=== PATIENT | female | born 1970 | race Caucasian/White ===

== ENCOUNTER → 2023-04-29 11:02 | Outpatient (REF) | payer OTHER, SELFPAY | LOC: WDC 11:02 | PROVIDERS: ATTENDING PHYSICIAN Physician Assistant Medical | DX: Z12.31 Encounter for screening mammogram for malignant neoplasm of breast (principal) | CPT/HCPCS: 77063; 77067 ==

== ENCOUNTER → 2024-05-31 11:04 | Outpatient (REF) | payer OTHER, SELFPAY | LOC: WDC 11:04 | PROVIDERS: ATTENDING PHYSICIAN Obstetrics & Gynecology Gynecology; FAMILY PHYSICIAN Physician Assistant Medical | DX: Z12.31 Encounter for screening mammogram for malignant neoplasm of breast (principal) | CPT/HCPCS: 77063; 77067 ==

== ENCOUNTER → 2024-06-14 09:33 | Outpatient (REF) | payer OTHER, SELFPAY | LOC: WDC 09:33 | PROVIDERS: ATTENDING PHYSICIAN Obstetrics & Gynecology Gynecology; FAMILY PHYSICIAN Physician Assistant Medical | DX: R92.8 Other abnormal and inconclusive findings on diagnostic imaging of breast (principal) | CPT/HCPCS: 76642 ==

== ENCOUNTER → 2024-06-17 07:31 | Outpatient (REF) | payer OTHER, SELFPAY ==
--- NOTE | 2024-06-17 09:21 | OID.BR.INTR ---
[facility] Breast Navigator - Initial
- -
Date of Contact: 06/17/24
Met with patient. Patient given written information on navigator services at [facility]. Will follow up as needed per protocol.
== END ==
LOC: WDC 07:31
PROVIDERS: ATTENDING PHYSICIAN Obstetrics & Gynecology Gynecology; FAMILY PHYSICIAN Physician Assistant Medical
DX: N63.23 Unspecified lump in the left breast, lower outer quadrant (principal); N63.14 Unspecified lump in the right breast, lower inner quadrant
CPT/HCPCS: 88305; 19083; 88341; 88342; 88360; A4648

== ENCOUNTER → 2024-06-28 16:40 | Outpatient (REF) | payer OTHER, SELFPAY | LOC: MRI 3T 16:40 | PROVIDERS: ATTENDING PHYSICIAN Surgery; FAMILY PHYSICIAN Physician Assistant Medical | DX: C50.812 Malignant neoplasm of overlapping sites of left female breast (principal); Z17.0 Estrogen receptor positive status [ER+]; C50.811 Malignant neoplasm of overlapping sites of right female breast | CPT/HCPCS: 77049; A9585 ==

== ENCOUNTER → 2024-07-02 13:53 | Outpatient (REF) | payer OTHER, SELFPAY | LOC: WDC 13:53 | PROVIDERS: ATTENDING PHYSICIAN Surgery; FAMILY PHYSICIAN Physician Assistant Medical | DX: R92.8 Other abnormal and inconclusive findings on diagnostic imaging of breast (principal) | CPT/HCPCS: 76642 ==

== ENCOUNTER 2024-07-06 06:10 | Day surgery (SDC) | payer OTHER, SELFPAY ==
[2024-07-06 10:48] VITALS: BP 140/89; BMI 31.0
--- NOTE | 2024-07-06 10:54 | W.SUR.PREOP ---
Pre-Operative Surgical Note
-
I have examined this patient prior to the performance of the scheduled procedure.
The patient's condition is unchanged from the time of the current History and
Physical and the patient is able to undergo the scheduled procedure.
[2024-07-06] MEDS: NSS 1000 IV (11:03)
[2024-07-06] MEDS: TYLENOL 1000 MG PO (11:04)
[2024-07-06] MEDS: NORMOSOL-R/PLASMALYTE-A 1000 IV (11:36)
[2024-07-06] MEDS: VANCOCIN 200 IV (11:36)
[2024-07-06 13:28] VITALS: BP 114/77
[2024-07-06 13:30] VITALS: BP 121/75
--- NOTE | 2024-07-06 13:41 | W.IMMPOSTOP ---
Surgical Immed Post Op Note
-
Primary Surgeon: Kiesha
Assisting Surgeon: None
Pre-op Diagnosis: Bilateral breast ca
Post-op Diagnosis: Same
Procedure Performed: Right portacath insertion
Anesthesia Type: TIVA
Specimen / Cultures: None
Estimated Blood Loss: 4cc
Complications: None
Operative Findings: None
--- NOTE | 2024-07-06 13:42 | OR.RPT ---
Operative Report
Operative Report
Date of surgeru: 07/06/24
Pre-Op DX: Left breast ca
Post Op DX: Left breast ca
Procedure: Insertion right portacath
Surgeon: Kiesha
The patient is a 53-year-old female with left breast carcinoma requiring adjuvant neochemotherapy who presents now for right Port-A-Cath insertion.
The patient presented to same-day surgical services where she verified site and procedure. She was prepped and DVT and antibiotic prophylaxis were administered. She was taken to the operating room and in Trendelenburg position with shoulder roll
in place, the right chest and neck were prepped and draped in usual sterile fashion. The team performed an appropriate time out procedure. All tissues were anesthetized with 1% lidocaine plain.
Via Seldinger technique the right subclavian vein was entered on the first percutaneous stick. A guidewire was advanced into position in the superior vena cava and position was confirmed with the C arm. Inferior to the exit site of the guidewire,
a subcutaneous pocket was fashioned sharply with the cautery. A low-profile single-lumen port flushed with heparinized saline was passed into the pocket. It was securely attached to the catheter which was cut to appropriate length using
fluoroscopic guidance at the 21 cm paty. The tract was dilated under fluoroscopic guidance. Dilator and wire were removed and the catheter passed easily through the tear-away sheath which was removed. The port aspirated well and was flushed. The
patient was taken out of Trendelenburg position.
Hemostasis was verified. Marcaine 0.5% plain was instilled into all tissues and the wound was closed using simple interrupted 3-0 plain on subcutaneous tissue and skin was closed with a running subcuticular 4 Monocryl. Surgical glue and a sterile
compressive dressing were applied. The patient will be transferred to the recovery room where she will undergo postoperative chest x-ray.
([id number])
[2024-07-06 13:45] VITALS: BP 133/84
[2024-07-06 14:00] VITALS: BP 127/82
[2024-07-06 14:26] VITALS: BP 148/87
== END 2024-07-06 15:00 | disposition home or self-care (01) ==
LOC: SDS 06:10
PROVIDERS: ATTENDING PHYSICIAN Surgery
DX: C50.912 Malignant neoplasm of unspecified site of left female breast (principal)
CPT/HCPCS: 36561; 71045; 76000; C1788

== ENCOUNTER → 2024-07-06 08:51 | Outpatient (REF) | payer OTHER, SELFPAY | LOC: RCS 08:51 | PROVIDERS: ATTENDING PHYSICIAN Internal Medicine Hematology & Oncology; FAMILY PHYSICIAN Physician Assistant Medical | DX: C50.512 Malignant neoplasm of lower-outer quadrant of left female breast (principal) | CPT/HCPCS: 93306; 93356 ==

== ENCOUNTER → 2024-07-12 11:31 | Outpatient (REF) | payer OTHER, SELFPAY | LOC: RAD 11:31 | PROVIDERS: ATTENDING PHYSICIAN Surgery | DX: C50.812 Malignant neoplasm of overlapping sites of left female breast (principal) | CPT/HCPCS: 71046 ==

== ENCOUNTER → 2024-07-19 10:56 | Outpatient (REF) | payer OTHER, SELFPAY ==
[2024-07-19 11:38] LABS: % Basophils 0.6 % (0-2); % Eosinophils 5.1 % (0-6); % Immature Granulocytes 0.6 % (0-0.5); % Lymphocytes 20.5 % (20.5-51.1); % Monocytes 3.8 % (1.7-9.3); % Neutrophils 69.4 % (42.2-75.2); Absolute Basophils 0.1 10^3/uL (0-0.2); Absolute Eosinophils 0.5 10^3/uL (0-0.7); Absolute Immature Granulocytes 0.1 10^3/uL (0-0.05); Absolute Lymphocytes 2.1 10^3/uL (1.2-3.4); Absolute Monocytes 0.4 10^3/uL (0.1-0.6); Absolute Neutrophils 6.9 10^3/uL (1.4-6.5); Hematocrit 41.9 % (37.0-47.0); Hemoglobin 14.1 g/dL (12.0-16.0); Mean Corp Hgb Conc. 33.7 g/dL (33.0-37.0); Mean Corpuscular Hgb 30.1 pg (27.0-31.0); Mean Corpuscular Volume 89.5 fL (81.0-99.0); Mean Platelet Volume 9.6 fL (7.4-10.4); Nucleated Red Blood Cells % 0 %; Platelet Count 288 10^3/uL (130-400); Red Blood Cell Count 4.68 10^6/uL (4.20-5.40); Red Cell Dist. Width 13.2 % (11.5-14.5)
[2024-07-19 11:48] LABS: ALT (SGPT) 23 U/L (0-35); AST (SGOT) 21 U/L (14-36); Albumin 4.5 g/dl (3.5-5.0); Alkaline Phosphatase 77 U/L (38-126); Blood Urea Nitrogen 13 mg/dl (7-17); Calcium 10.2 mg/dl (8.4-10.2); Carbon Dioxide 27 mmol/L (22-30); Chloride 105 mmol/L (98-107); Glucose 115 mg/dl (70-99); Potassium 4.8 mmol/L (3.5-5.1); Sodium 142 mmol/L (135-145); Total Bilirubin 0.3 mg/dl (0.2-1.3); Total Protein 7.4 g/dl (6.3-8.2); eGFR > 60.00
== END ==
LOC: REG 10:56
PROVIDERS: ATTENDING PHYSICIAN Internal Medicine Hematology & Oncology; FAMILY PHYSICIAN Physician Assistant Medical
DX: C50.512 Malignant neoplasm of lower-outer quadrant of left female breast (principal); C50.511 Malignant neoplasm of lower-outer quadrant of right female breast
CPT/HCPCS: 36415; 80053; 85025

== ENCOUNTER → 2024-08-09 08:44 | Outpatient (REF) | payer OTHER, SELFPAY ==
[2024-08-09 09:34] LABS: % Basophils 0.7 % (0-2); % Eosinophils 1.7 % (0-6); % Immature Granulocytes 0.7 % (0-0.5); % Lymphocytes 17.3 % (20.5-51.1); % Monocytes 5.9 % (1.7-9.3); % Neutrophils 73.7 % (42.2-75.2); Absolute Basophils 0.1 10^3/uL (0-0.2); Absolute Eosinophils 0.2 10^3/uL (0-0.7); Absolute Immature Granulocytes 0.1 10^3/uL (0-0.05); Absolute Lymphocytes 1.7 10^3/uL (1.2-3.4); Absolute Monocytes 0.6 10^3/uL (0.1-0.6); Hemoglobin 12.5 g/dL (12.0-16.0); Mean Corp Hgb Conc. 33.8 g/dL (33.0-37.0); Mean Corpuscular Hgb 30.8 pg (27.0-31.0); Mean Corpuscular Volume 91.1 fL (81.0-99.0); Mean Platelet Volume 9.8 fL (7.4-10.4); Nucleated Red Blood Cells % 0 %; Platelet Count 298 10^3/uL (130-400); Red Blood Cell Count 4.06 10^6/uL (4.20-5.40); Red Cell Dist. Width 14.2 % (11.5-14.5); White Blood Cell Count 9.5 10^3/uL (4.8-10.8)
[2024-08-09 10:01] LABS: ALT (SGPT) 33 U/L (0-35); AST (SGOT) 25 U/L (14-36); Albumin 4.1 g/dl (3.5-5.0); Alkaline Phosphatase 84 U/L (38-126); Blood Urea Nitrogen 10 mg/dl (7-17); Calcium 9.5 mg/dl (8.4-10.2); Carbon Dioxide 26 mmol/L (22-30); Chloride 109 mmol/L (98-107); Glucose 67 mg/dl (70-99); Potassium 4.2 mmol/L (3.5-5.1); Sodium 141 mmol/L (135-145); Total Bilirubin 0.3 mg/dl (0.2-1.3); Total Protein 6.5 g/dl (6.3-8.2); eGFR > 60.00
== END ==
LOC: REG 08:44
PROVIDERS: ATTENDING PHYSICIAN Internal Medicine Hematology & Oncology; FAMILY PHYSICIAN Physician Assistant Medical
DX: C50.512 Malignant neoplasm of lower-outer quadrant of left female breast (principal); C50.511 Malignant neoplasm of lower-outer quadrant of right female breast
CPT/HCPCS: 36415; 80053; 85025

== ENCOUNTER → 2024-08-30 08:01 | Outpatient (REF) | payer OTHER, SELFPAY ==
[2024-08-30 08:25] LABS: % Basophils 0.7 % (0-2); % Eosinophils 0.4 % (0-6); % Immature Granulocytes 0.4 % (0-0.5); % Lymphocytes 22.1 % (20.5-51.1); % Monocytes 7.5 % (1.7-9.3); % Neutrophils 68.9 % (42.2-75.2); Absolute Basophils 0.1 10^3/uL (0-0.2); Absolute Lymphocytes 1.6 10^3/uL (1.2-3.4); Absolute Monocytes 0.5 10^3/uL (0.1-0.6); Absolute Neutrophils 4.8 10^3/uL (1.4-6.5); Hematocrit 35.2 % (37.0-47.0); Hemoglobin 11.7 g/dL (12.0-16.0); Mean Corp Hgb Conc. 33.2 g/dL (33.0-37.0); Mean Corpuscular Hgb 30.8 pg (27.0-31.0); Mean Corpuscular Volume 92.6 fL (81.0-99.0); Mean Platelet Volume 9.2 fL (7.4-10.4); Nucleated Red Blood Cells % 0 %; Platelet Count 200 10^3/uL (130-400); Red Cell Dist. Width 16.4 % (11.5-14.5)
[2024-08-30 09:57] LABS: ALT (SGPT) 53 U/L (0-35); AST (SGOT) 38 U/L (14-36); Albumin 4.2 g/dl (3.5-5.0); Alkaline Phosphatase 88 U/L (38-126); Blood Urea Nitrogen 12 mg/dl (7-17); Calcium 9.7 mg/dl (8.4-10.2); Carbon Dioxide 28 mmol/L (22-30); Chloride 109 mmol/L (98-107); Glucose 95 mg/dl (70-99); Sodium 145 mmol/L (135-145); Total Bilirubin 0.4 mg/dl (0.2-1.3); Total Protein 6.6 g/dl (6.3-8.2); eGFR > 60.00
== END ==
LOC: REG 08:01
PROVIDERS: ATTENDING PHYSICIAN Internal Medicine Hematology & Oncology
DX: C50.512 Malignant neoplasm of lower-outer quadrant of left female breast (principal); C50.511 Malignant neoplasm of lower-outer quadrant of right female breast
CPT/HCPCS: 36415; 80053; 85025

== ENCOUNTER → 2024-09-20 08:27 | Outpatient (REF) | payer OTHER, SELFPAY ==
[2024-09-20 09:28] LABS: Hematocrit 31.3 % (37.0-47.0); Hemoglobin 10.4 g/dL (12.0-16.0); Mean Corp Hgb Conc. 33.2 g/dL (33.0-37.0); Mean Corpuscular Volume 96.0 fL (81.0-99.0); Nucleated Red Blood Cells % 0 %; Platelet Count 195 10^3/uL (130-400); Red Cell Dist. Width 18.7 % (11.5-14.5)
[2024-09-20 09:55] LABS: ALT (SGPT) 31 U/L (0-35); AST (SGOT) 26 U/L (14-36); Albumin 3.8 g/dl (3.5-5.0); Alkaline Phosphatase 82 U/L (38-126); Blood Urea Nitrogen 9 mg/dl (7-17); Calcium 9.2 mg/dl (8.4-10.2); Carbon Dioxide 31 mmol/L (22-30); Chloride 107 mmol/L (98-107); Glucose 80 mg/dl (70-99); Potassium 3.9 mmol/L (3.5-5.1); Sodium 140 mmol/L (135-145); Total Protein 6.1 g/dl (6.3-8.2); eGFR > 60.00
== END ==
LOC: REG 08:27
PROVIDERS: ATTENDING PHYSICIAN Internal Medicine Hematology & Oncology; FAMILY PHYSICIAN Physician Assistant Medical
DX: C50.512 Malignant neoplasm of lower-outer quadrant of left female breast (principal); C50.511 Malignant neoplasm of lower-outer quadrant of right female breast
CPT/HCPCS: 36415; 80053; 85025

== ENCOUNTER → 2024-09-21 16:19 | Outpatient (REF) | payer OTHER, SELFPAY ==
[2024-09-21 09:56] LABS: Magnesium 1.7 mg/dl (1.6-2.3)
== END ==
LOC: OIDL 16:19
PROVIDERS: ATTENDING PHYSICIAN Internal Medicine Hematology & Oncology
DX: C50.511 Malignant neoplasm of lower-outer quadrant of right female breast (principal); C50.512 Malignant neoplasm of lower-outer quadrant of left female breast
CPT/HCPCS: 83735

== ENCOUNTER 2024-09-25 10:54 | Emergency (ER) | payer OTHER, SELFPAY ==
[2024-09-25 11:11] VITALS: BP 105/81
--- NOTE | 2024-09-25 11:12 | ED.GENMED ---
History of Present Illness
General
Chief Complaint: Dizziness
Source: patient
Exam Limitations: none
Time Seen by Provider: 09/25/24 11:05
History of Present Illness
History of Present Illness:
See MDM
Past History
Past History
ED Past Medical History: None and Cancer
ED Past Surgical History: Cholecystectomy and
Social History
Tobacco: Non-smoker
Alcohol: Occasional
Drug: None
Personal:
Living: with family
Phy Exam
Physical Exam
Physical Exam:
See MDM
Scores
[id number] Score for Afib Stroke Risk
Age in Years (65=0, 65-74=1, >/=75=2): <65
Sex (Female=+1): Female
Congestive Heart Failure History (Yes=+1): No
Hypertension History (Yes=+1): No
Stroke/TIA/Thromboembolism History (Yes=+2): No
Vascular Disease History (Yes=+1): No
Diabetes Mellitus (Yes=+1): No
Score: 1
Anticoagulation Recommendations: Consider anticoagulation (as validated in nonvalvular fib)
Course
Orders/Labs/Results
Orders:
Orders
09/25/24 11:00
Electrocardiogram (*1) Urgent
Reason for Study: Vertigo / Dizzy
EKG- Treatment ONCE
09/25/24 11:13
0.9% Sodium Chloride 1000 ml [Nss] 1,000 ml IV BOLUS
09/25/24 11:17
Diltiazem HCl [Cardizem] 20 mg IV NOW STA
09/25/24 11:24
Metoprolol Xl [Toprol Xl] 25 mg PO NOW STA
09/25/24 11:25
Electrocardiogram (*1) Urgent
Reason for Study: Palpitations
EKG- Treatment ONCE
09/25/24 11:45
Apixaban [Eliquis] 5 mg PO ONCE ONE
09/25/24 12:03
Complete Blood Count/With Diff Urgent
Comprehensive Metabolic Panel Urgent
Magnesium Urgent
Manual Differential Urgent
TSH Reflex To Free T4 Urgent
Abnormal Lab Results
09/25/24
12:03
WBC 14.9 H 10^3/uL
(4.8-10.8)
RBC 3.51 L 10^6/uL
(4.20-5.40)
Hgb 11.3 L g/dL
(12.0-16.0)
Hct 32.8 L %
(37.0-47.0)
MCH 32.2 H pg
(27.0-31.0)
RDW 18.4 H %
(11.5-14.5)
Abs Neuts (Manual) 13.2 H 10^3/uL
(1.4-6.5)
Segmented Neutrophils 86 H %
(42-75)
Lymphocytes (Manual) 7 L %
(20-51)
Monocytes (Manual) 1 L %
(2-9)
Glucose 129 H mg/dl
(70-99)
Total Protein 6.1 L g/dl
(6.3-8.2)
09/25/24 12:03
09/25/24 12:03
Vital Signs
Initial and Last Documented VS:
Initial Vital Signs
Temp Pulse Resp Pulse Ox
98.3 F 89 16 100
09/25/24 10:57 09/25/24 10:57 09/25/24 10:57 09/25/24 10:57
Last Documented Vital Signs
Temp Pulse Resp BP Pulse Ox
98.3 F 95 10 112/76 98
09/25/24 10:57 09/25/24 12:15 09/25/24 12:15 09/25/24 12:00 09/25/24 12:15
MDM/Problems Addressed
Differential Diagnosis Includes:
Note:
CHIEF COMPLAINT(S)
Dizziness and diarrhea.
HISTORY OF PRESENT ILLNESS
The patient is a 54-year-old female with a history of bilateral breast cancer currently undergoing chemotherapy, who presented with dizziness and diarrhea. The symptoms began last night with dizziness and lightheadedness continuing into this
morning. She described trying to consume fluids, carbohydrates, and protein for energy but experienced the onset of diarrhea today, reporting two episodes. She noted feeling 'fluttery' in her stomach and chest and described severe dizziness such
that she needs to hold onto nuñez for balance. She denies vomiting but reported that the dizziness is not associated with room spinning. No previous history of similar dizziness was noted.
ADDITIONAL HISTORY OBTAINED FROM SOURCES OTHER THAN THE PATIENT
Per attending, Dr. Hever Glass, the patients symptoms may be related to dehydration secondary to chemotherapy. He recommended IV fluids and an EKG.
CHRONIC MEDICAL CONDITIONS SIGNIFICANTLY AFFECTING CARE
The patient has a history of bilateral breast cancer, undergoing treatment for two types: HER2-positive and one HER2-negative.
REVIEW OF SYSTEMS
- Gastrointestinal: Two episodes of diarrhea today.
- Neurological: Severe dizziness requiring support to walk.
- Cardiac: Reports 'fluttery' feelings in chest.
PHYSICAL EXAM
General: Alert, no acute distress.
Skin: Warm, dry.
Head: Normocephalic, atraumatic
Neck: Appears supple, trachea midline.
Eyes, Ears, Nose, Mouth, and Throat: Dry mucosa moist.
Cardiovascular: No signs of cyanosis. Tachycardic and irregular
Respiratory: Respirations are non-labored.
Abdomen: Non-distended
Musculoskeletal: No deformities
Neurological: No focal neurological deficit observed.
Psychiatric: Cooperative, appropriate mood and affect.
PLAN
1. Administer IV fluids to address potential dehydration due to chemotherapy.
2. Order and perform an EKG to rule out irregular heart rhythms.
3. Conduct blood work to assess electrolyte levels and monitor for possible imbalances such as abnormal sodium or magnesium.
4. Consider testing for infections like Clostridium difficile if diarrhea persists.
DIFFERENTIAL DIAGNOSIS
The Differential Diagnosis includes, in no particular order and is not limited to:
1. Dehydration due to chemotherapy
2. Syncope
3. Anemia
4. Electrolyte imbalance
5. Arrhythmia
6. Vestibular dysfunction
7. Hypotension
8. Vertigo
9. Gastroenteritis
10. Central nervous system event (e.g., TIA)
EKG
My independent EKG interpretation is:
- Rhythm: Atrial fibrillation with rapid ventricular rate (RVR)
- Heart Rate: 123 beats per minute
- [place]: Normal
- No ST segment elevation myocardial infarction (STEMI) observed
CARE-UPDATE
09/25/24 - 11:24
Patient auto-converted to sinus rhythm; instead of IV Cardizem, will administer a dose of propranolol XL. Will discuss case with dairy feed sales consultant for further recommendations.
CARE-UPDATE
09/25/24 - 11:44
Discussed case with cardiology. Despite a low CHADS-VASc score, the patient is at high risk for clotting due to active cancer. Cardiology agrees with continuation of Toprol XL and initiating Eliquis for at least one month. Outpatient follow-up and
outpatient echocardiogram will be arranged.
Disposition:
SUMMARY OF ENCOUNTER
The patient, a 54-year-old female with a history of bilateral breast cancer undergoing chemotherapy, presented to the emergency department with dizziness and diarrhea. After administering IV fluids and observing the patient, her heart rhythm
stabilized to a normal sinus rhythm from atrial fibrillation. Blood work showed no significant abnormalities, and the thyroid function tests were within normal limits. The patients symptoms improved and she felt comfortable to be discharged.
DISPOSITION
Discharge.
MANAGEMENT OF THE PATIENTS CARE WAS DISCUSSED WITH
Discussed case with cardiology and relayed the course of events to the on-call oncologist.
PLAN
The patient will follow up with cardiology in an outpatient setting.
INDEPENDENT REVIEW OF LABS AND INTERPRETATION OF TESTS
My independent review of blood work indicates no significant abnormalities. Thyroid function tests are within normal limits.
MEDICATION RECONCILIATION
The patient was maintained on Toprol XL (metoprolol) and initiated on Eliquis (apixaban) for at least one month.
MEDICAL DECISION MAKING
-Complexity of Data Reviewed: Chronic conditions affecting care include breast cancer and atrial fibrillation. Differential Diagnosis includes:
1. Dehydration due to chemotherapy
2. Syncope
3. Anemia
4. Electrolyte imbalance
5. Arrhythmia
6. Vestibular dysfunction
7. Hypotension
8. Vertigo
9. Gastroenteritis
10. Central nervous system event (e.g., TIA)
-Data:
Category 1: Blood work was reviewed. My independent EKG interpretation showed atrial fibrillation with rapid ventricular rate initially, resolving to normal sinus rhythm.
Category 3: Discussion of management with dairy feed sales consultant and the on-call oncologist.
-Risk: Prescription medication was prescribed including Eliquis for anticoagulation and Toprol XL for heart rate control.
DIAGNOSIS
Atrial fibrillation (ICD-10: I48.91) and Dehydration (ICD-10: E86.0).
*Pulse Oximetry
SaO2: 100
Oxygen Mode of Delivery: Room air
Patient hypoxic: no
*Critical Care Note
Total Time (30-74mins, 75-104mins- exclusive of procedures): Not Applicable
ED Attending Note
-
Portions of this chart may have been created with voice recognition software.� Occasional wrong word or��sound alike� substitutions may have occurred due to the inherent limitations of voice recognition software.
Discharge Plan
Departure
Patient Disposition: Home (Routine Discharge)
Date of Disposition: 09/25/24
Time of Disposition: 13:21
Patient with high blood pressure during this ER visit?: No
Discharge Problem:
New onset a-fib
Instructions: Atrial fibrillation
Prescriptions:
New
Eliquis 5 mg tablet
5 mg PO BID 30 Days Qty: 60 0RF
metoprolol succinate [Toprol XL] 25 mg tablet extended release 24 hr
25 mg PO DAILY Qty: 30 0RF
No Action
ibuprofen [Advil] 200 MG tablet
200 mg PO ONCE
acetaminophen [Tylenol] 325 mg Tablet
650 mg PO Q4H PRN (Reason: pain)
cetirizine [Zyrtec] 10 mg Tablet
10 mg PO DAILY
albuterol sulfate 90 mcg/actuation Hfa Aerosol Inhaler
1 puff INHALATION PRN PRN (Reason: intermittent asthma)
fluticasone propionate [Flonase] 50 mcg/actuation [place],Suspension
1 spray INTRANASAL DAILY
One-A-Day Women's Complete 18 mg iron- 400 mcg Tablet
1 tab PO DAILY
Vitamin C
1 dose PO DAILY
Vitamin D3
1 dose PO DAILY
Referrals:
Ramirez Farah MD [Active, Cardiology]
Sanjuana Gonzalez PA-C [Family Provider, Family Practice]
Activity Restrictions/Additional Instructions:
As we discussed, you were found to be in new onset A-fib. This is an irregular heart rhythm. The dairy feed sales consultant is aware and they will expedite follow-up and repeat echocardiogram. You were placed on a new medication called metoprolol (Toprol-XL)
which will help avoid repeat A-fib episodes. Because of your clotting risk, the dairy feed sales consultant agrees with placing you on at least 1 month of a blood thinner called Eliquis.
Sometimes the metoprolol can make you feel dizzy. If this happens, the symptoms usually resolve with time but you can cut the pill in half and take half a pill twice a day if that helps with symptoms. If you develop recurrent episodes of A-fib,
you can take an extra dose of your metoprolol.
Please return for any worsening symptoms.
You may return at any time if you have further concerns.
Please follow up with your oncologist.
Thank you for choosing [facility].
Interventions
Interventions:
*Risk Screen - Suicide Last Done: 09/25/24 11:18
*General Assessment Last Done: 09/25/24 11:18
*Neglect/Abuse Screening Last Done: 09/25/24 11:18
*ED- Fall Risk Assessment Last Done: 09/25/24 11:18
*ED COVID-19 Vaccine History Last Done: 09/25/24 11:18
ED- Neurological Assessment Last Done: 09/25/24 11:18
Discharge Date and Time
Print Language: TURKISH
[2024-09-25 11:18] VITALS: BMI 29.1
[2024-09-25 11:30] VITALS: BP 108/76
[2024-09-25] MEDS: TOPROL XL 25 MG PO (11:30)
[2024-09-25 12:00] VITALS: BP 112/76
[2024-09-25] MEDS: ELIQUIS 5 MG PO (12:00)
[2024-09-25] MEDS: NSS 1000 IV (12:01)
[2024-09-25 12:39] LABS: ALT (SGPT) 27 U/L (0-35); AST (SGOT) 28 U/L (14-36); Albumin 4.2 g/dl (3.5-5.0); Alkaline Phosphatase 107 U/L (38-126); Blood Urea Nitrogen 16 mg/dl (7-17); Calcium 9.3 mg/dl (8.4-10.2); Carbon Dioxide 24 mmol/L (22-30); Chloride 106 mmol/L (98-107); Estimated Creatinine Clearance 109 ml/min; Glucose 129 mg/dl (70-99); Magnesium 1.8 mg/dl (1.6-2.3); Potassium 3.6 mmol/L (3.5-5.1); Sodium 139 mmol/L (135-145); Total Protein 6.1 g/dl (6.3-8.2); eGFR > 60.00
[2024-09-25 12:45] LABS: Hematocrit 32.8 % (37.0-47.0); Hemoglobin 11.3 g/dL (12.0-16.0); Mean Corp Hgb Conc. 34.5 g/dL (33.0-37.0); Mean Corpuscular Volume 93.4 fL (81.0-99.0); Platelet Count 270 10^3/uL (130-400); Red Cell Dist. Width 18.4 % (11.5-14.5)
[2024-09-25 13:00] VITALS: BP 121/78
[2024-09-25 13:19] LABS: Absolute Neutrophils -Man Diff 13.2 10^3/uL (1.4-6.5)
[2024-09-25 13:20] LABS: Normal RBC Morphology No; Platelets Checked Yes
[2024-09-25 13:21] LABS: Rouleaux 1+; Total Cells Counted 100
[2024-09-25 13:23] LABS: Anisocytosis 1+
== END 2024-09-25 14:09 | disposition home or self-care (01) ==
LOC: EMR 10:54
PROVIDERS: EMERGENCY PHYSICIAN Student in an Organized Health Care Education/Training Program; FAMILY PHYSICIAN Physician Assistant Medical
DX: I48.91 Unspecified atrial fibrillation (principal); Z17.32 Human epidermal growth factor receptor 2 negative status; Z79.01 Long term (current) use of anticoagulants; Z85.3 Personal history of malignant neoplasm of breast; Z90.49 Acquired absence of other specified parts of digestive tract
CPT/HCPCS: 99283; 96360; 80053; 83735; 84443; 85025; 93005

== ENCOUNTER → 2024-10-05 08:19 | Outpatient (REF) | payer OTHER, SELFPAY | LOC: HWRCS 08:19 | PROVIDERS: ATTENDING PHYSICIAN Internal Medicine Cardiovascular Disease; FAMILY PHYSICIAN Physician Assistant Medical | DX: C50.919 Malignant neoplasm of unspecified site of unspecified female breast (principal); I48.91 Unspecified atrial fibrillation | CPT/HCPCS: 93306 ==

== ENCOUNTER → 2024-10-11 08:28 | Outpatient (REF) | payer OTHER, SELFPAY ==
[2024-10-11 10:09] LABS: Hematocrit 31.7 % (37.0-47.0); Hemoglobin 10.5 g/dL (12.0-16.0); Mean Corp Hgb Conc. 33.1 g/dL (33.0-37.0); Mean Corpuscular Volume 101.0 fL (81.0-99.0); Nucleated Red Blood Cells % 0 %; Platelet Count 155 10^3/uL (130-400); Red Cell Dist. Width 20.2 % (11.5-14.5)
[2024-10-11 10:38] LABS: ALT (SGPT) 31 U/L (0-35); AST (SGOT) 25 U/L (14-36); Albumin 4.1 g/dl (3.5-5.0); Alkaline Phosphatase 79 U/L (38-126); Blood Urea Nitrogen 10 mg/dl (7-17); Calcium 9.4 mg/dl (8.4-10.2); Carbon Dioxide 26 mmol/L (22-30); Chloride 107 mmol/L (98-107); Glucose 100 mg/dl (70-99); Magnesium 1.7 mg/dl (1.6-2.3); Sodium 140 mmol/L (135-145); Total Protein 6.3 g/dl (6.3-8.2); eGFR > 60.00
[2024-10-11 10:49] LABS: Potassium 4.5 mmol/L (3.5-5.1)
== END ==
LOC: REG 08:28
PROVIDERS: ATTENDING PHYSICIAN Internal Medicine Hematology & Oncology; FAMILY PHYSICIAN Physician Assistant Medical
DX: C50.511 Malignant neoplasm of lower-outer quadrant of right female breast (principal); C50.512 Malignant neoplasm of lower-outer quadrant of left female breast
CPT/HCPCS: 36415; 80053; 83735; 85025

== ENCOUNTER → 2024-10-22 13:41 | Outpatient (REF) | payer OTHER, SELFPAY | LOC: WDC 13:41 | PROVIDERS: ATTENDING PHYSICIAN Surgery; FAMILY PHYSICIAN Physician Assistant Medical | DX: R92.8 Other abnormal and inconclusive findings on diagnostic imaging of breast (principal); C50.412 Malignant neoplasm of upper-outer quadrant of left female breast; C50.811 Malignant neoplasm of overlapping sites of right female breast | CPT/HCPCS: 76642 ==

== ENCOUNTER → 2024-11-02 11:26 | Outpatient (REF) | payer OTHER, SELFPAY ==
[2024-11-02 13:09] LABS: Hematocrit 29.3 % (37.0-47.0); Hemoglobin 9.6 g/dL (12.0-16.0); Mean Corp Hgb Conc. 32.8 g/dL (33.0-37.0); Mean Corpuscular Volume 104.6 fL (81.0-99.0); Nucleated Red Blood Cells % 0 %; Platelet Count 216 10^3/uL (130-400); Red Cell Dist. Width 19.0 % (11.5-14.5)
[2024-11-02 13:54] LABS: ALT (SGPT) 38 U/L (0-35); AST (SGOT) 31 U/L (14-36); Albumin 3.8 g/dl (3.5-5.0); Alkaline Phosphatase 67 U/L (38-126); Blood Urea Nitrogen 6 mg/dl (7-17); Calcium 9.5 mg/dl (8.4-10.2); Carbon Dioxide 28 mmol/L (22-30); Chloride 107 mmol/L (98-107); Glucose 89 mg/dl (70-99); Magnesium 1.7 mg/dl (1.6-2.3); Potassium 4.2 mmol/L (3.5-5.1); Sodium 140 mmol/L (135-145); Total Protein 5.8 g/dl (6.3-8.2); eGFR > 60.00
== END ==
LOC: REG 11:26
PROVIDERS: ATTENDING PHYSICIAN Internal Medicine Hematology & Oncology
DX: C50.511 Malignant neoplasm of lower-outer quadrant of right female breast (principal); C50.512 Malignant neoplasm of lower-outer quadrant of left female breast
CPT/HCPCS: 36415; 80053; 83735; 85025

== ENCOUNTER → 2024-11-27 09:53 | Outpatient (REF) | payer OTHER, SELFPAY ==
[2024-11-27 11:07] LABS: Hematocrit 27.9 % (37.0-47.0); Hemoglobin 9.2 g/dL (12.0-16.0); Mean Corp Hgb Conc. 33.0 g/dL (33.0-37.0); Mean Corpuscular Volume 104.1 fL (81.0-99.0); Nucleated Red Blood Cells % 0 %; Platelet Count 184 10^3/uL (130-400); Red Cell Dist. Width 15.9 % (11.5-14.5)
[2024-11-27 11:39] LABS: ALT (SGPT) 41 U/L (0-35); AST (SGOT) 31 U/L (14-36); Albumin 3.6 g/dl (3.5-5.0); Alkaline Phosphatase 68 U/L (38-126); Blood Urea Nitrogen 5 mg/dl (7-17); Calcium 9.0 mg/dl (8.4-10.2); Carbon Dioxide 27 mmol/L (22-30); Chloride 107 mmol/L (98-107); Glucose 88 mg/dl (70-99); Magnesium 1.3 mg/dl (1.6-2.3); Potassium 3.8 mmol/L (3.5-5.1); Sodium 140 mmol/L (135-145); Total Protein 5.8 g/dl (6.3-8.2); eGFR > 60.00
== END ==
LOC: REG 09:53
PROVIDERS: ATTENDING PHYSICIAN Internal Medicine Hematology & Oncology; FAMILY PHYSICIAN Physician Assistant Medical
DX: C50.511 Malignant neoplasm of lower-outer quadrant of right female breast (principal); C50.512 Malignant neoplasm of lower-outer quadrant of left female breast
CPT/HCPCS: 36415; 80053; 83735; 85025

== ENCOUNTER → 2024-12-13 11:38 | Outpatient (REF) | payer OTHER, SELFPAY | LOC: WDC 11:38 | PROVIDERS: ATTENDING PHYSICIAN Surgery | DX: C50.811 Malignant neoplasm of overlapping sites of right female breast (principal); C50.412 Malignant neoplasm of upper-outer quadrant of left female breast | CPT/HCPCS: 38792; 76942; A9541 ==

== ENCOUNTER 2024-12-14 06:28 | Day surgery (SDC) | payer OTHER, SELFPAY ==
[2024-11-29 11:21] LABS: Hematocrit 31.1 % (37.0-47.0); Hemoglobin 10.1 g/dL (12.0-16.0); Mean Corp Hgb Conc. 32.5 g/dL (33.0-37.0); Mean Corpuscular Volume 104.0 fL (81.0-99.0); Nucleated Red Blood Cells % 0 %; Platelet Count 273 10^3/uL (130-400); Red Cell Dist. Width 16.1 % (11.5-14.5)
[2024-11-29 11:57] LABS: ALT (SGPT) 35 U/L (0-35); AST (SGOT) 29 U/L (14-36); Albumin 4.0 g/dl (3.5-5.0); Alkaline Phosphatase 76 U/L (38-126); Blood Urea Nitrogen 8 mg/dl (7-17); Calcium 9.0 mg/dl (8.4-10.2); Carbon Dioxide 27 mmol/L (22-30); Chloride 106 mmol/L (98-107); Glucose 80 mg/dl (70-99); Potassium 3.9 mmol/L (3.5-5.1); Sodium 141 mmol/L (135-145); Total Protein 6.1 g/dl (6.3-8.2); eGFR > 60.00
[2024-11-29 12:04] LABS: Prealbumin (Transthyretin) 22.4 mg/dl (17.6-36.0)
[2024-11-29 12:16] LABS: Vitamin D, 25-OH*** 29.3 ng/mL (30-80)
[2024-11-29 14:15] VITALS: BMI 27.7
--- NOTE | 2024-12-07 14:28 | VNURNOTE ---
Chart reviewed. Rec'ed update from PAT -Anticipate HH needs post-op. [facility] referral placed in [facility].
[2024-12-14] VITALS (16 sets, daily range): BP systolic 0–146; BP diastolic 61–89; BMI 27.7
[2024-12-14] MEDS: NORMOSOL-R/PLASMALYTE-A 1000 IV (07:06)
[2024-12-14] MEDS: LOVENOX 40 MG SC (07:06)
[2024-12-14] MEDS: TYLENOL 1000 MG PO ×3 (07:07→23:34)
[2024-12-14] MEDS: VANCOCIN 200 IV (07:25)
[2024-12-14] MEDS: EMEND 40 MG PO (07:54)
--- NOTE | 2024-12-14 11:41 | OR.RPT ---
Operative Report
Operative Report
Procedure: 12/14/2024
Surgeon: Kiesha
Preoperative diagnosis: Bilateral breast carcinoma
Postoperative diagnosis: Bilateral breast carcinoma
Procedure: Bilateral mastectomies, bilateral sentinel lymph node mapping and biopsy
The patient is a 54-year-old female who presented with bilateral breast carcinomas the right side being HER2 positive. She underwent neoadjuvant chemotherapy and presents now for bilateral mastectomies and sentinel lymph node mapping and biopsy.
On the day prior to the procedure she presented to the [place] [facility] imaging center where technetium radiotracer was injected into the parenchyma of both breasts. On the day of the procedure she presented to the same-day surgical services where she
was prepped. She verified site and procedure and DVT and antibiotic prophylaxis were provided.
She was taken to the operating room and in the supine position general anesthesia was induced. A Teresa catheter was inserted using aseptic technique. Both breasts chest and upper abdomen were prepped and draped in usual sterile fashion. Her
Port-A-Cath had been accessed and was sterilely excluded with a Tegaderm. Plastic surgery marked the incisions. An appropriate timeout procedure was performed by all staff members.
Attention was first turned to the left breast. Methylene blue dye was injected into the breast parenchyma and external massage was applied. A vertical teardrop incision was then made with the blade, incorporating resection of the nipple areolar
complex. Skin flaps were elevated using the PlasmaBlade and a lighted retractor. Flaps were elevated and dissection was carried down to the chest wall. Larger vessels were controlled with 3-0 silk tie. The breast was taken off the chest in a
superior to inferior dimension and removed laterally. Time out of body was noted and the specimen was oriented for the pathologist and sent for permanent analysis. This allowed entry into the axilla. Clavipectoral fascia was incised and using the
neoprobe and visualization of blue dye 3 sentinel node packets were encountered and excised. Feeding vessels were controlled with 3-0 silk ties. After the removal there was a greater than fourfold reduction of background count. Hemostasis was
verified and the wound was irrigated and suctioned. A moist pack was placed. In the same fashion the right side was approached and removed. On this side there were 3 sentinel nodes sent as well. Plastic surgery then entered the procedure to
begin the reconstructive portion. All sponge needle and instrument counts were correct at this juncture.
([id number], [id number], [id number])
Wiley Node Bx Breast Cancer
Wiley Node Bx Breast Cancer
Operation performed with curative intent: Yes
Tracer(s) to ID Wiley Nodes in Non-Neoadjuvant setting: N/A
Tracer(s) to ID Sentinal Nodes in the Neoadjuvant Setting: Dye and Radioactive Tracer
All nodes at end of dye-filled Lymphatic Channel removed: Yes
All Significantly Radioactive Nodes were removed: Yes
All Palpably Suspicious Nodes were Removed: Yes
Bx Proven Pos Nodes Marked Prior to Chemo ID'd & Removed: N/A
[2024-12-14] MEDS: DILAUDID 0.25 MG IV (12:49)
[2024-12-14] MEDS: DILAUDID 0.5 MG IV ×2 (13:14→13:46)
--- NOTE | 2024-12-14 13:18 | OR.RPT ---
Operative Report
Operative Report
Date of surgery: 12/14/2024
Surgeon: AMANDA Conley MD
Preoperative diagnosis: Breast cancer
Postoperative diagnosis: Same
Procedure:
1. Bilateral immediate breast reconstruction with prepectoral tissue expanders
2. Total anterior coverage technique for ADM wrap
Complications: None
Anesthesia: General
EBL: 30
Needle Valve Operator size: 13 cm
Indications for procedure: Patient was referred to me by Dr. Pop with a recent diagnosis of breast cancer. She was planned to undergo bilateral mastectomy. We discussed her options for breast reconstruction at length including implant based
and autologous options. The patient opted for immediate reconstruction with tissue expanders. She understands that the final reconstruction will be staged. We also discussed the use of ADM and spy angiography. Risks include reconstructive
failure, capsular contracture, infection, delayed wound healing, mastectomy skin flap necrosis, hematoma, seroma and need for repeat procedure. Patient understood these risks and desired to proceed. Consents were signed accordingly.
Procedure in detail: Patient was identified the preoperative area and the surgical site was confirmed to be the bilateral breast. All questions were answered and consents were confirmed. Patient was then sat upright and normal anatomical landmarks
were marked including midline and inframammary fold. Patient was then taken back to the operating room placed supine on the table. She was prepped and draped in the usual sterile fashion using ChloraPrep solution. A Teresa catheter was placed. A
timeout for patient safety was performed was confirmed that bilateral SCDs were in place and preoperative antibiotics administered. The procedure began with Dr. Pop first performing the mastectomy. Her op report will be dictated separately.
When I entered the procedure, the first sided mastectomy had been completed. As such I inspected the wound bed of the chest wall and ensured meticulous hemostasis. The base width was measured and appropriate tissue black belt was selected. Two 6 x
16 sheets of Cortiva ADM were soaked in dilute Betadine solution and passed through the skin graft mesher on carrier of 1-1.5. This construct was then draped around the tissue black belt in a total anterior coverage technique. The black belt ADM
construct was then sutured to the chest wall with a series of 2-0 silk sutures. Pectoralis and intercostal blocks were performed with Marcaine. 2 drains were then placed in the preaxial area line with a long subcutaneous tunnel and sutured in
place with 2-0 Prolene sutures. The wound was irrigated with double antibiotic solution and dilute Betadine. The mastectomy incisions were then closed with a series of 3-0 Vicryl's in the deep subcutaneous tissues followed by 3-0 and 4-0
Monocryl's in the deep dermis and superficial skin.
Attention was then placed on the contralateral side after completion of the mastectomy. The exact same procedure was performed. An black belt of the same size was opened and 2 sheets of ADM were soaked in Betadine, meshed, and draped around the
anterior surface of the black belt in a total anterior coverage technique. The construct was then sutured to the chest wall using 2-0 silks. Pectoralis and intercostal blocks were performed. Meticulous hemostasis was ensured and the wound was
irrigated with combination of double antibiotic solution consisting of Ancef and gentamicin as well as dilute Betadine. The wound was closed in layers with 3-0 Vicryl followed by 3-0 Monocryl and 4-0 Monocryl superficial skin.
The wounds were dressed accordingly and a supportive bra was placed. The patient was extubated taken to the PACU for further care. All counts were correct at the end the case was performed out complication.
--- NOTE | 2024-12-14 15:20 | PTCARENOTE ---
Pt received from the PACU via bed. Transport was w/o incident. Pt is AAOX3, HRR, lungs are clear, resp. easy. Pt with dressings to right and left breast area intact, no drainage noted at this time. Pt's support bra maintained. 2 Bird sites below left
breast and 2 bird drains below right breast areas all intact, draining dark [place] drainage. Pt with a le cath draining clear yellow urine. VSS, Pt is afebrile. Pt reports pain as mild at this time. Pt instructed on plan of care. Pt verbalized
understanding of instructions. Call cerrato is within reach.
[2024-12-14] MEDS: NEURONTIN 300 MG PO ×2 (17:20→21:04)
[2024-12-14] MEDS: VALIUM 5 MG PO ×2 (17:21→23:50)
--- NOTE | 2024-12-14 18:25 | W.IMMPOSTOP ---
Surgical Immed Post Op Note
-
Primary Surgeon: AMANDA Conley MD
Assisting Surgeon:
Pre-op Diagnosis: Breast cancer
Post-op Diagnosis: Same
Procedure Performed: Bilateral immediate breast reconstruction with tissue expanders, ADM insertion
Anesthesia Type: General
Specimen / Cultures: Per Dr. Pop
Estimated Blood Loss: 30 cc
Complications: None
Operative Findings: As expected
[2024-12-14] MEDS: ULTRAM 100 MG PO (21:05)
[2024-12-15 03:19] VITALS: BP 131/75
[2024-12-15] MEDS: TYLENOL 1000 MG PO ×2 (06:10→12:52)
[2024-12-15] MEDS: ULTRAM 100 MG PO (06:29)
[2024-12-15 07:35] VITALS: BP 146/80
[2024-12-15 08:29] LABS: Hematocrit 31.6 % (37.0-47.0); Hemoglobin 10.5 g/dL (12.0-16.0)
[2024-12-15] MEDS: PROTONIX 40 MG PO (08:33)
[2024-12-15] MEDS: TOPROL XL 25 MG PO (08:33)
[2024-12-15] MEDS: NEURONTIN 300 MG PO (08:33)
[2024-12-15] MEDS: VALIUM 5 MG PO (08:34)
[2024-12-15 08:45] LABS: Blood Urea Nitrogen 9 mg/dl (7-17); Calcium 9.3 mg/dl (8.4-10.2); Carbon Dioxide 27 mmol/L (22-30); Chloride 106 mmol/L (98-107); Estimated Creatinine Clearance 106 ml/min; Glucose 103 mg/dl (70-99); Potassium 3.8 mmol/L (3.5-5.1); Sodium 139 mmol/L (135-145); eGFR > 60.00
--- NOTE | 2024-12-15 10:55 | VNURNOTE ---
Home Health Liaison met with patient at bedside to discuss [facility] nurse/therapy, visits, schedule and homebound status. Patient is agreeable and understands that visits at home will be 2-3 x per week to assess and teach medical management. Patient
is aware that [facility] will contact them for start of care in 1-2 days after discharge from . Provided contact number for [facility].
[facility] referral accepted in [facility].
--- NOTE | 2024-12-15 11:14 | W.DCSUMMARY ---
Discharge Summary
Discharge Data
Date of Admission: 12/14/24
Date of Discharge: 12/15/24
-
Pending Results: No
Hospital Course
Patient admitted following bilateral mastectomy. Follow routine postoperative course. She progressively was able to ambulate tolerate a regular diet and pain was well-controlled on oral medications. She was discharged postop day 1 with close
surgical follow-up
Discharge Plan
-
Patient Disposition: Home (Routine Discharge)
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
Condition: Good
Diet: Regular
Activity: No strenuous activity
Additional Activity: No heavy lifting >10lbs, T adelfo arms for ROM
Driving Restrictions: Not until seen by your Dr
Bathing Restrictions: OK to Shower
Other Services: VN
Wound Care: Strip and record drain output twice daily, light compression bra
Instructions: How to care for a closed suction drain
Referrals:
Sanjuana Gonzalez PA-C [Family Provider, Family Practice]
Prescriptions:
New
tramadol 50 mg Tablet
50 - 100 mg PO Q6HPRN PRN (Reason: pain) 7 Days Qty: 20 0RF
acetaminophen [Tylenol Extra Strength] 500 mg Tablet
1,000 mg PO Q6 30 Days Qty: 240 0RF
gabapentin 100 mg Capsule
300 mg PO TID 30 Days Qty: 270 3RF
diazepam 5 mg Tablet
5 mg PO TID 14 Days Qty: 42 0RF
sulfamethoxazole-trimethoprim [Bactrim] 400-80 mg tablet
1 tab PO BID Qty: 42 0RF
Continued
acetaminophen [Tylenol] 325 mg Tablet
650 mg PO Q4H PRN (Reason: pain)
cetirizine [Zyrtec] 10 mg Tablet
10 mg PO DAILY
albuterol sulfate 90 mcg/actuation Hfa Aerosol Inhaler
1 puff INHALATION PRN PRN (Reason: intermittent asthma)
fluticasone propionate 50 mcg/actuation [place],Suspension
1 spray INTRANASAL DAILY PRN (Reason: allergies)
metoprolol succinate [Toprol XL] 25 mg tablet extended release 24 hr
25 mg PO DAILY Qty: 30 0RF
famotidine [Pepcid] 20 mg Tablet
20 mg PO DAILY PRN (Reason: reflux)
esomeprazole magnesium [Nexium] 20 mg Capsule,Delayed Release(Dr/Ec)
20 mg PO DAILY
magnesium 200 mg Tablet
400 mg PO DAILY
Phesgo
1 dose SC Q3W
Patient Comments:
every 3 weeks
Discharge Orders:
Discharge Patient (As Directed); Ordered 12/15/24
Ordered By: Jose Daniel Conley
Discharge Date and Time
Print Language: GREENLANDIC
[2024-12-15 11:50] VITALS: BP 129/71
--- NOTE | 2024-12-15 14:52 | CM ---
Alert awake oriented patient who lives with her Aldo and 3 kids in a 2 story home with 2 steps to enter and 12 steps to bed/bathroom. She is independent in activates of daily living.She does drive .Offered VN she requested [facility] .
[facility] aware of referral . Pt has a Drain .
NO VN in past . No SNF hx
Pharmacy [facility]
PCP Dr Bridges
PLAN Home with [facility]
== END 2024-12-15 14:21 | disposition home health service (06) ==
LOC: SDS 06:28
PROVIDERS: Surgery Plastic and Reconstructive Surgery; ATTENDING PHYSICIAN Surgery; FAMILY PHYSICIAN Physician Assistant Medical
PROC: 07B60ZX Excision of Left Axillary Lymphatic, Open Approach, Diagnostic (ICD-10-PCS; 2024-12-14)
PROC: 0HTV0ZZ Resection of Bilateral Breast, Open Approach (ICD-10-PCS; 2024-12-14)
PROC: 0HHV0NZ Insertion of Tissue Expander into Bilateral Breast, Open Approach (ICD-10-PCS; 2024-12-14)
PROC: 07B50ZX Excision of Right Axillary Lymphatic, Open Approach, Diagnostic (ICD-10-PCS; 2024-12-14)
DX: C50.911 Malignant neoplasm of unspecified site of right female breast (principal); C50.912 Malignant neoplasm of unspecified site of left female breast; I48.91 Unspecified atrial fibrillation; K21.9 Gastro-esophageal reflux disease without esophagitis; J45.20 Mild intermittent asthma, uncomplicated; G43.909 Migraine, unspecified, not intractable, without status migrainosus; Z17.31 Human epidermal growth factor receptor 2 positive status; Z92.21 Personal history of antineoplastic chemotherapy; Z88.0 Allergy status to penicillin; Z79.899 Other long term (current) drug therapy; Z82.49 Family history of ischemic heart disease and other diseases of the circulatory system; Z80.3 Family history of malignant neoplasm of breast; Z80.0 Family history of malignant neoplasm of digestive organs; Z92.3 Personal history of irradiation; Z79.01 Long term (current) use of anticoagulants; Z91.048 Other nonmedicinal substance allergy status
CPT/HCPCS: 19357; 19307; 38900; 36415; 80048; 80053; 82306; 84134; 85014; 85018; 85025; 88307; 88342; 93005; C1789; L8000; Q4100

== ENCOUNTER → 2024-12-25 10:47 | Outpatient (REF) | payer OTHER, SELFPAY ==
[2024-12-25 13:01] LABS: ALT (SGPT) 59 U/L (0-35); AST (SGOT) 46 U/L (14-36); Albumin 3.5 g/dl (3.5-5.0); Alkaline Phosphatase 89 U/L (38-126); Blood Urea Nitrogen 15 mg/dl (7-17); Calcium 9.1 mg/dl (8.4-10.2); Carbon Dioxide 25 mmol/L (22-30); Chloride 108 mmol/L (98-107); Glucose 87 mg/dl (70-99); Magnesium 1.8 mg/dl (1.6-2.3); Potassium 3.9 mmol/L (3.5-5.1); Sodium 136 mmol/L (135-145); Total Protein 5.8 g/dl (6.3-8.2); eGFR > 60.00
[2024-12-25 13:28] LABS: Hematocrit 32.0 % (37.0-47.0); Hemoglobin 10.4 g/dL (12.0-16.0); Mean Corp Hgb Conc. 32.5 g/dL (33.0-37.0); Mean Corpuscular Volume 106.0 fL (81.0-99.0); Nucleated Red Blood Cells % 0 %; Platelet Count 232 10^3/uL (130-400); Red Cell Dist. Width 13.6 % (11.5-14.5)
== END ==
LOC: REG 10:47
PROVIDERS: ATTENDING PHYSICIAN Internal Medicine Hematology & Oncology; FAMILY PHYSICIAN Physician Assistant Medical
DX: C50.511 Malignant neoplasm of lower-outer quadrant of right female breast (principal); C50.512 Malignant neoplasm of lower-outer quadrant of left female breast
CPT/HCPCS: 36415; 80053; 83735; 85025

== ENCOUNTER → 2025-01-07 14:28 | Outpatient (REF) | payer OTHER, SELFPAY | LOC: HWRCS 14:28 | PROVIDERS: ATTENDING PHYSICIAN Internal Medicine Hematology & Oncology; FAMILY PHYSICIAN Physician Assistant Medical | DX: C50.512 Malignant neoplasm of lower-outer quadrant of left female breast (principal); C51.1 Malignant neoplasm of labium minus; Z78.0 Asymptomatic menopausal state | CPT/HCPCS: 93306 ==

== ENCOUNTER → 2025-01-14 06:48 | Outpatient (REF) | payer OTHER, SELFPAY | LOC: HWRAD 06:48 | PROVIDERS: ATTENDING PHYSICIAN Internal Medicine Hematology & Oncology; FAMILY PHYSICIAN Physician Assistant Medical | DX: C50.512 Malignant neoplasm of lower-outer quadrant of left female breast (principal); C50.511 Malignant neoplasm of lower-outer quadrant of right female breast; Z78.0 Asymptomatic menopausal state | CPT/HCPCS: 77080 ==

== ENCOUNTER → 2025-01-15 09:31 | Outpatient (REF) | payer OTHER, SELFPAY ==
[2025-01-15 10:23] LABS: Hematocrit 35.8 % (37.0-47.0); Hemoglobin 11.7 g/dL (12.0-16.0); Mean Corp Hgb Conc. 32.7 g/dL (33.0-37.0); Mean Corpuscular Volume 98.9 fL (81.0-99.0); Nucleated Red Blood Cells % 0 %; Platelet Count 180 10^3/uL (130-400); Red Cell Dist. Width 12.9 % (11.5-14.5)
[2025-01-15 10:44] LABS: ALT (SGPT) 44 U/L (0-35); AST (SGOT) 36 U/L (14-36); Albumin 3.9 g/dl (3.5-5.0); Alkaline Phosphatase 82 U/L (38-126); Blood Urea Nitrogen 14 mg/dl (7-17); Calcium 9.5 mg/dl (8.4-10.2); Carbon Dioxide 30 mmol/L (22-30); Chloride 103 mmol/L (98-107); Glucose 89 mg/dl (70-99); Magnesium 1.6 mg/dl (1.6-2.3); Potassium 4.1 mmol/L (3.5-5.1); Sodium 137 mmol/L (135-145); Total Protein 6.3 g/dl (6.3-8.2); eGFR > 60.00
== END ==
LOC: REG 09:31
PROVIDERS: ATTENDING PHYSICIAN Internal Medicine Hematology & Oncology; FAMILY PHYSICIAN Physician Assistant Medical
DX: C50.511 Malignant neoplasm of lower-outer quadrant of right female breast (principal); C50.512 Malignant neoplasm of lower-outer quadrant of left female breast
CPT/HCPCS: 36415; 80053; 83735; 85025

== ENCOUNTER → 2025-01-19 11:06 | Outpatient (REF) | payer OTHER, SELFPAY ==
[2025-01-19 13:07] LABS: Urine Character Slightly Cloudy (Clear)
== END ==
LOC: REG 11:06
PROVIDERS: ATTENDING PHYSICIAN Internal Medicine Hematology & Oncology
DX: C50.512 Malignant neoplasm of lower-outer quadrant of left female breast (principal); C50.511 Malignant neoplasm of lower-outer quadrant of right female breast; Z78.0 Asymptomatic menopausal state
CPT/HCPCS: 36415; 71046; 81003; 81015; 87040; 87086

== ENCOUNTER 2025-01-21 01:37 | Inpatient (IN) | payer OTHER, SELFPAY ==
[2025-01-20 20:27] VITALS: BP 172/106
[2025-01-20 22:01] VITALS: BP 135/64
[2025-01-20 22:51] VITALS: BMI 28.0
[2025-01-20 23:00] VITALS: BP 129/72
[2025-01-20] MEDS: ULTRAM 50 MG PO (23:19)
[2025-01-20] MEDS: NEURONTIN 600 MG PO (23:19)
[2025-01-20 23:20] LABS: Hematocrit 28.0 % (37.0-47.0); Hemoglobin 9.3 g/dL (12.0-16.0); Mean Corp Hgb Conc. 33.2 g/dL (33.0-37.0); Mean Corpuscular Volume 93.6 fL (81.0-99.0); Nucleated Red Blood Cells % 0 %; Platelet Count 183 10^3/uL (130-400); Red Cell Dist. Width 12.7 % (11.5-14.5)
--- NOTE | 2025-01-20 23:25 | VATNOTE ---
EMR MD ORDER TO ACCESS PRT VS ESTABLISHING PIV.
--- NOTE | 2025-01-20 23:37 | ED.GENMED ---
History of Present Illness
<Yonis Mejia PA-C - Last Filed: 01/21/25 00:11>
General
Chief Complaint: Post Operative Problem(s)
Source: patient
Time Seen by Provider: 01/20/25 22:39
History of Present Illness
History of Present Illness:
54-year-old female with past medical history of breast cancer status post bilateral mastectomy, completed chemotherapy presenting to the ER for evaluation of drainage from the left breast chest wall incision that she notes started to not look as
good a few days ago and today noticed a significant amount of drainage and had a fever with a Tmax of 104 over the last 24 hours, afebrile on arrival here. Patient had blood work and blood cultures done at her oncologist within the last 48 hours
with these tests all coming back unremarkable. Patient has no other symptoms including URI like symptoms, cough, abdominal pain, nausea and vomiting, diarrhea, urinary symptoms, other rashes, headache/neck pain or any other concerns. 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
Past History
<Yonis Mejia PA-C - Last Filed: 01/21/25 00:11>
Past History
ED Past Medical History: Asthma, Cancer, GERD and Other (Migraines)
ED Past Surgical History: Cholecystectomy, and Other (bilateral mastectomy)
Social History
Tobacco: Non-smoker
Alcohol: Occasional
Drug: None
Personal:
Living: with family
Review of Systems
<Yonis Mejia PA-C - Last Filed: 01/21/25 00:11>
Review of Systems
All Other Systems: ROS reviewed and negative except as documented in HPI and ROS
Phy Exam
<Yonis Mejia PA-C - Last Filed: 01/21/25 00:11>
Physical Exam
Physical Exam:
GENERAL: Alert , in no apparent distress
EYE: clear conjunctiva b/l
HEAD: NCAT
ENT: o/p clr, mmm.
CARDIAC: Regular rate and rhythm .
LUNGS: Clear breath sounds bilaterally, no acute respiratory distress, no wheezes/rales/rhonchi
CHEST WALL: Exam chaperoned by ED ELBERT Wright: wound dehisced, draining clear yellow, non-odorous, surrounding erythema. Wound ~ 2cm
ABDOMEN: Soft, without focal tenderness, no r/g, no cvat
NEUROLOGICAL: Alert and oriented
SKIN: Warm and dry, skin intact. see above
MUSCULOSKELETAL: No edema, well perfused.
PSYCH: Normal and appropriate interaction.
Scores
<Yonis Mejia PA-C - Last Filed: 01/21/25 00:11>
Heart Failure Risk
Heart Failure Risk Score: Not Applicable
Heart Score for Chest Pain Patients
STEMI patient?: Not applicable
Withdrawal Assessment of Alcohol
Withdrawal Assessment Completed?: Not applicable
Course
<Yonis Mejia PA-C - Last Filed: 01/21/25 00:11>
Orders/Labs/Results
Orders:
Orders
01/20/25 22:58
CT Chest With Iv Contrast Urgent
Comment:
Reason For Exam: left chest wall infection, s/p mastectomy
01/20/25 23:02
Gabapentin [Neurontin] 600 mg PO NOW STA
Tramadol HCl [Ultram] 50 mg PO NOW STA
01/20/25 23:11
Comprehensive Metabolic Panel Urgent
01/20/25 23:12
Complete Blood Count/With Diff Urgent
Lactic Acid Urgent
Wound Culture [Wound/Abscess/Other Culture] Urgent
REMIGIO Source: Chest
Specimen Description: Left
Date Specimen was Collected: 01/20/25
Time Specimen was Collected: 22:59
01/20/25 23:19
Cefepime HCl [Maxipime] 2,000 mg IV NOW STA
01/20/25 23:39
Vancomycin [Vancocin] 2,000 mg 0.9% Sodium Chloride 500 ml [Nss] 500 ml IV NOW
Abnormal Lab Results
01/20/25 01/20/25
23:11 23:12
RBC 2.99 L 10^6/uL
(4.20-5.40)
Hgb 9.3 L D g/dL
(12.0-16.0)
Hct 28.0 L %
(37.0-47.0)
MCH 31.1 H pg
(27.0-31.0)
Lymphocytes % 16.5 L %
(20.5-51.1)
Lactic Acid 0.6 L mmol/L
(0.7-2.0)
Total Protein 5.5 L g/dl
(6.3-8.2)
Albumin 3.3 L g/dl
(3.5-5.0)
01/20/25 23:12
01/20/25 23:11
Vital Signs
Initial and Last Documented VS:
Initial Vital Signs
Temp Pulse Resp BP Pulse Ox
98.2 F 94 18 172/106 94
01/20/25 20:27 01/20/25 20:27 01/20/25 20:27 01/20/25 20:27 01/20/25 20:27
Last Documented Vital Signs
Temp Pulse Resp BP Pulse Ox
99.7 F 89 13 135/64 96
01/20/25 23:00 01/20/25 22:30 01/20/25 22:30 01/20/25 22:01 01/20/25 23:39
Kitlt;Waylon Gastelum, - Last Filed: 01/21/25 00:11>
Orders/Labs/Results
Orders:
Orders
01/20/25 22:58
CT Chest With Iv Contrast Urgent
Comment:
Reason For Exam: left chest wall infection, s/p mastectomy
01/20/25 23:02
Gabapentin [Neurontin] 600 mg PO NOW STA
Tramadol HCl [Ultram] 50 mg PO NOW STA
01/20/25 23:11
Comprehensive Metabolic Panel Urgent
01/20/25 23:12
Complete Blood Count/With Diff Urgent
Lactic Acid Urgent
Wound Culture [Wound/Abscess/Other Culture] Urgent
REMIGIO Source: Chest
Specimen Description: Left
Date Specimen was Collected: 01/20/25
Time Specimen was Collected: 22:59
01/20/25 23:19
Cefepime HCl [Maxipime] 2,000 mg IV NOW STA
01/20/25 23:39
Vancomycin [Vancocin] 2,000 mg 0.9% Sodium Chloride 500 ml [Nss] 500 ml IV NOW
Abnormal Lab Results
01/20/25 01/20/25
23:11 23:12
RBC 2.99 L 10^6/uL
(4.20-5.40)
Hgb 9.3 L D g/dL
(12.0-16.0)
Hct 28.0 L %
(37.0-47.0)
MCH 31.1 H pg
(27.0-31.0)
Lymphocytes % 16.5 L %
(20.5-51.1)
Lactic Acid 0.6 L mmol/L
(0.7-2.0)
Total Protein 5.5 L g/dl
(6.3-8.2)
Albumin 3.3 L g/dl
(3.5-5.0)
01/20/25 23:12
01/20/25 23:11
Vital Signs
Initial and Last Documented VS:
Initial Vital Signs
Temp Pulse Resp BP Pulse Ox
98.2 F 94 18 172/106 94
01/20/25 20:27 01/20/25 20:27 01/20/25 20:27 01/20/25 20:27 01/20/25 20:27
Last Documented Vital Signs
Temp Pulse Resp BP Pulse Ox
99.7 F 89 13 135/64 96
01/20/25 23:00 01/20/25 22:30 01/20/25 22:30 01/20/25 22:01 01/20/25 23:39
<Yonis Mejia PA-C - Last Filed: 01/21/25 00:11>
MDM/Problems Addressed
Differential Diagnosis Includes:
Post op seroma
Abscess
Cellulitis
Empyema
Bacteremia (negative cultures 2 days ago)
MDM/Problems Addressed:
54-year-old female presenting to the ER for evaluation of fevers combined with increased drainage from her left mastectomy incisional site. Afebrile here, at time of my exam oral temp of 99.7. Will recheck labs. Will attempt to discuss case with
patient's surgeon, Dr. Conley, with plans for likely admission and consultation inpatient.
<Yonis Mejia PA-C - Last Filed: 01/21/25 00:11>
*Radiology
Radiology exam reviewed: radiology read reviewed
*Pulse Oximetry
SaO2: 96
Oxygen Mode of Delivery: Room air
Patient hypoxic: no
*Critical Care Note
Total Time (30-74mins, 75-104mins- exclusive of procedures): Not Applicable
Data Reviewed
Review of Other/Old Records Reveals: Labs, Records and Operative Reports
<Yonis Mejia PA-C - Last Filed: 01/21/25 00:11>
Patient Management
Discussion with other providers: Hospitalist and Peripatologist
Escalation/DeEscalation of care consider admission/obs:
Picture of wound sent via [place] text to Dr. Conley. Request CT of the chest with IV contrast. Will consult on the patient in the morning.
CT shows:
IMPRESSION:
Postoperative changes of the breast parenchyma consistent with history of bilateral mastectomies with tissue expanders in place. Large fluid collections surrounding the tissue expanders bilaterally, larger on the left than the right. There is
overlying skin thickening and induration of the subcutaneous tissue. Findings may be postoperative however superimposed infection is a consideration in the appropriate clinical setting. Fluid collection surrounding the left public relations senior associate is somewhat
asymmetric extending more laterally to the public relations senior associate implant measuring 4.7 cm AP. The fluid collection surrounding the right breast public relations senior associate more closely approximates the implant and measures 4.1 cm AP.
Hospitalist team aware and accepts for continued evaluation and treatment.
ED Attending Note
<Yonis Mejia PA-C - Last Filed: 01/21/25 00:11>
-
Portions of this chart may have been created with voice recognition software.� Occasional wrong word or��sound alike� substitutions may have occurred due to the inherent limitations of voice recognition software.
<Waylon Gastelum DO - Last Filed: 01/21/25 00:11>
ED Attending Note
Patient seen and examined by attending physician: Yes
I performed the substantive portion of visit, reviewed & personally made and approve the management plan that is documented in note by myself or BERNIE.: Yes
ED Attending Note:
Note:
CHIEF COMPLAINT(S)
Fever and discomfort at surgical incision site.
HISTORY OF PRESENT ILLNESS
The patient is a 53-year-old female who presents with concerns following a recent surgical procedure. The surgery was performed on December 14. The patient reports experiencing a 'super crazy high fever' two days ago and describes a feeling of
'weirdness' around the surgical incision site. She expressed concern about these symptoms. There is a plan to admit the patient to the hospital for further evaluation and management, which will include starting antibiotics and obtaining a CT scan of
the chest.
PHYSICAL EXAM
General: Alert, no acute distress.
Skin: Warm, dry.
Head: Normocephalic, atraumatic.
Neck: Supple, trachea midline.
Eye Ears, nose, mouth and throat: Oral mucosa moist.
Cardiovascular: Normal peripheral perfusion, No edema.
Respiratory: Respirations are non-labored.
Gastrointestinal: Abdomen nondistended.
Musculoskeletal: Normal ROM
Neurological: Alert and oriented to person, place, time, and situation, No focal neurological deficit observed.
Psychiatric: Cooperative, appropriate mood & affect.
PLAN
1. Admission to the hospital for monitoring and management.
2. Initiation of antibiotic therapy.
3. Obtain a CT scan of the chest for further evaluation.
DIFFERENTIAL DIAGNOSIS
The differential diagnosis includes, in no particular order and is not limited to:
1. Post-surgical infection
2. Surgical site hematoma
3. Seroma formation
4. Pulmonary embolism
5. Pneumonia
6. Drug fever
7. Atelectasis
8. Incisional hernia
9. Systemic inflammatory response
10. Viral infection
Disposition:
SUMMARY OF ENCOUNTER
The patient, a 53-year-old female, was seen in the emergency department due to concerns of fever and discomfort at a surgical incision site following a recent procedure. She reported experiencing a high fever two days ago and unusual sensations
around the incision. Her symptoms prompted a plan for hospital admission for further evaluation and management, including the initiation of antibiotics and a CT scan of the chest to explore possible complications.
DISPOSITION
Admit
ASSESSMENT
The patient is likely experiencing a post-surgical infection given the fever and discomfort at the surgical site. Other considerations include surgical site hematoma or seroma formation.
PLAN
1. Admit to the hospital for monitoring and further management.
2. Initiate antibiotic therapy.
3. Obtain a CT scan of the chest for further evaluation.
MEDICAL DECISION MAKING
-Complexity of Data Reviewed: Chronic conditions affecting care. The differential diagnosis includes post-surgical infection, surgical site hematoma, seroma formation, pulmonary embolism, pneumonia, drug fever, atelectasis, incisional hernia,
systemic inflammatory response, and viral infection.
DIAGNOSIS
1. Post-surgical infection, unspecified (ICD-10: T81.40XA)
2. Fever, unspecified (ICD-10: R50.9)
Discharge Plan
Departure
Patient Disposition: Admit
Date of Disposition: 01/21/25
Time of Disposition: 00:10
Presentation/result/management discussed w/ accepting MD/DO: Hospitalist
Discharge Problem:
Postoperative abscess
Prescriptions:
No Action
acetaminophen [Tylenol] 325 mg Tablet
650 mg PO Q4H PRN (Reason: pain)
cetirizine [Zyrtec] 10 mg Tablet
10 mg PO DAILY
albuterol sulfate 90 mcg/actuation Hfa Aerosol Inhaler
1 puff INHALATION PRN PRN (Reason: intermittent asthma)
fluticasone propionate 50 mcg/actuation [place],Suspension
1 spray INTRANASAL DAILY PRN (Reason: allergies)
metoprolol succinate [Toprol XL] 25 mg tablet extended release 24 hr
25 mg PO DAILY Qty: 30 0RF
famotidine [Pepcid] 20 mg Tablet
20 mg PO DAILY PRN (Reason: reflux)
esomeprazole magnesium [Nexium] 20 mg Capsule,Delayed Release(Dr/Ec)
20 mg PO DAILY
magnesium 200 mg Tablet
400 mg PO DAILY
Phesgo
1 dose SC Q3W
Patient Comments:
every 3 weeks
tramadol 50 mg Tablet
50 - 100 mg PO Q6HPRN PRN (Reason: pain) 7 Days Qty: 20 0RF
acetaminophen [Tylenol Extra Strength] 500 mg Tablet
1,000 mg PO Q6 30 Days Qty: 240 0RF
gabapentin 100 mg Capsule
300 mg PO TID 30 Days Qty: 270 3RF
diazepam 5 mg Tablet
5 mg PO TID 14 Days Qty: 42 0RF
sulfamethoxazole-trimethoprim [Bactrim] 400-80 mg tablet
1 tab PO BID Qty: 42 0RF
Referrals:
Zaynab Ocampo MD [Family Provider, Hematology / Oncology]
Interventions
Interventions:
*Risk Screen - Suicide Last Done: 01/20/25 20:30
*General Assessment Last Done: 01/20/25 20:30
*Neglect/Abuse Screening Last Done: 01/20/25 20:30
*ED COVID-19 Vaccine History Last Done: 01/20/25 20:30
*ED Influenza Vaccine History Last Done: 01/20/25 20:30
Discharge Date and Time
Print Language: FAROESE
[2025-01-20] MEDS: MAXIPIME 2000 MG IV (23:41)
[2025-01-20 23:43] LABS: ALT (SGPT) 24 U/L (0-35); AST (SGOT) 22 U/L (14-36); Albumin 3.3 g/dl (3.5-5.0); Alkaline Phosphatase 78 U/L (38-126); Blood Urea Nitrogen 15 mg/dl (7-17); Calcium 8.7 mg/dl (8.4-10.2); Carbon Dioxide 30 mmol/L (22-30); Chloride 103 mmol/L (98-107); Estimated Creatinine Clearance 92 ml/min; Glucose 93 mg/dl (70-99); Potassium 3.9 mmol/L (3.5-5.1); Sodium 137 mmol/L (135-145); Total Protein 5.5 g/dl (6.3-8.2); eGFR > 60.00
[2025-01-20] MEDS: VANCOCIN 540 MG IV (23:54)
[2025-01-21] VITALS (7 sets, daily range): BP systolic 121–138; BP diastolic 59–74; BMI 28.2
--- NOTE | 2025-01-21 00:50 | HPS.HSE ---
Family Physician
-
Family Physician: Zaynab Ocampo
Chief Complaint
-
Fever
History of Present Illness
This is a 54-year-old female with past medical history significant for GERD, atrial fibrillation on anticoagulation, migraine headaches, recent diagnosis of breast cancer status post bilateral mastectomy in December 14 coming to the emergency
department with fever.
Patient has a history of bilateral breast cancer that was diagnosed 89 this year status post chemotherapy and currently on Phesgo. She had bilateral mastectomy and lymph node dissection in December with placement of expanders. Patient reported that
these lesions and sutures are healed well. However since to the ED patient has been having fevers to as high as 104 at home. She denies cough runny nose facial pain sore throat shortness of breath abdominal pain nausea vomiting or diarrhea. She
denies any urinary symptoms. She had a follow-up with oncology the day after with negative chest x-ray and no findings on urinalysis. Blood work was unremarkable.
Last chemo was in November. She did get PHESGO shot on Friday. Patient stated that she probably came to the emergency department because of profuse amount of drainage coming from the left breast incision site. She reports that is mostly clear
fluid and continuously soaking pads. She had not had drainage for several weeks and has not had to use any dressing up until today. She reports some mild tenderness which she associates with the expanders on both breast. She also felt some
increased fullness in her breast bilaterally.
In the emergency department patient's temp was max at 99.7, blood pressure was 195/64 with a pulse rate of 89 satting 96% on room air.
CBC shows a white count of 9.0 hemoglobin hyponatremic platelet of 183. Electrolytes BUN/creatinine were all in normal range.
CT of the chest shows bilateral mastectomy with tissue expanders in place, likely collection surrounding the tissue expanders bilaterally, overlying skin thickening and induration of the subcutaneous tissue, findings suggestive of postoperative
changes however superimposed infection is a consideration. No evidence of consolidation in the chest. X-ray from yesterday also shows no parenchymal opacification or vascular congestion.
Medical History
Past Medical History
Past Medical History: Reports Arrhythmia (Atrial fibrillation on anticoagulation), Cancer (Breast cancer status post bilateral mastectomy) and GERD
Past Surgical History: Reports (X 2) and Other (Bilateral mastectomies, bilateral SLN mapping and biopsies)
Social History
Tobacco: Non-smoker
Alcohol: None
Drug: None
Living: With Family
Family History
Family History: Not pertinent
Allergies / Home Medications
Allergies reflects when Allergies were last updated in [employer].
Home Medications with original date entered in [employer]
Allergy/Medication List:
Allergies
Allergy/AdvReac Type Severity Reaction Status Date / Time
Penicillins Allergy Rash Verified 01/20/25 20:31
Home Medications
cetirizine 10 mg tablet (Zyrtec) 10 mg PO DAILY Allergies 06/30/24
metoprolol succinate 25 mg tablet,extended release 24 hr (Toprol XL) 25 mg PO DAILY #30 tabs 09/25/24
Phesgo 1 dose SC Q3W Anti-Inflammatory 12/07/24
famotidine 20 mg tablet (Pepcid) 20 mg PO DAILY PRN reflux 12/07/24
magnesium 200 mg tablet 400 mg PO DAILY Supplement 12/07/24
gabapentin 600 mg capsule 600 mg PO TID 30 days #270 caps 12/15/24
Tramadol 200 mg extended release tablets, 200 mg tablets daily
Meloxicam 7.5 mg tablets, 7.5 mg p.o. daily
Review of Systems
-
Constitutional: Reports Fever
EENT: Reports No Symptoms
Respiratory: Reports No Symptoms
Cardiac: Reports No Symptoms
Abdomen/GI: Reports No Symptoms
: Reports No Symptoms
Musculoskeletal: Reports No Symptoms
Skin: Reports Other (Clear drainage coming from incision site on the left breast)
Neurological: Reports No Symptoms
Endocrine: Reports No Symptoms
Hematologic/Lymphatic: Reports No Symptoms
Psych: Reports No Symptoms
Physical Exam
Vital Signs
Vital Signs
Temp Pulse Resp BP Pulse Ox
99.7 F 89 13 135/64 96
01/20/25 23:00 01/20/25 22:30 01/20/25 22:30 01/20/25 22:01 01/20/25 23:39
Physical Exam
General: Well Developed, Well Nourished and No Apparent Distress
HEENT: NormoCephalic, Moist mucous membranes and Atraumatic
Respiratory: Clear
Cardiac: S1/S2 and Regular Rhythm; No Murmur or Rub
GI: Soft, Non Tender, Non Distended and Normal Bowel Sounds; No Organomegaly
Rectal: Deferred by Provider
Musculoskeletal: No Clubbing, No Cyanosis and No Edema
Skin: Rash and Other (She has a well-healed scar on the right breast. On the left breast there is opening of the incision site with subcutaneous fat seen and ongoing drainage of clear serosanguineous fluid, no obvious pus collection. There is some
mild surrounding erythema without induration.)
Neuro: AO x 3 and Nonfocal/grossly intact
Hematologic/Lymphatic: No Lymphadenopathy
Psych: Calm
Laboratory Results
-
01/20/25 23:12
01/20/25 23:11
Laboratory Results
Lactic Acid 0.6 mmol/L (0.7-2.0) L 01/20/25 23:12
Total Bilirubin 0.2 mg/dl (0.2-1.3) 01/20/25 23:11
AST 22 U/L (14-36) 01/20/25 23:11
ALT 24 U/L (0-35) 01/20/25 23:11
Alkaline Phosphatase 78 U/L (38-126) 01/20/25 23:11
Data Reviewed
-
Diagnostic Radiology: Report Reviewed by me
CT Scan: Report Reviewed by me
Lab Data: Labs Reviewed by me
Old Records: Reviewed
Impression/Plan
-
IMPRESSION:
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 She has new
drainage coming from the left breast incision site that appears serosanguineous. She does have a CT scan showing likely collection surrounding the tissue expanders bilaterally suggestive of postoperative changes but a superimposed infection cannot
be ruled out entirely.
PLAN:
Fevers -no neutropenia, he has tolerated Phesgo for several injections without fevers, no respiratory symptoms. She has cellulitis which appears minor on the left breast but cannot rule out superinfection of the likely seroma surrounding the tissue
expanders.
- Admit to [facility]
- Blood cultures sent
- IV vancomycin and cefepime for now
- MRSA swab
- Patient may warrant IR drainage versus surgical procedure, plastic surgery consulted and aware
- Wound dressing changes
A-fib -very transient episode of atrial fibrillation. Patient has been followed up by cardiology and completed a 1 month course of anticoagulation
- No further anticoagulation per cardiology
- Continue metoprolol 25 daily
Breast cancer
- Continue supportive therapies with gabapentin, tramadol and meloxicam
- Continue Pepcid-continue Zyrtec
-Continue mag oxide
DVT prophylaxis�Lovenox subcu
CODE STATUS�full code
[2025-01-21 01:27] LABS: COVID-19 Antigen Negative (Negative)
--- NOTE | 2025-01-21 03:35 | PHA.VAN.IN ---
Assessment
- Assessment
Renal Function: Appears similar to baseline
Concomitant Antimicrobials: Cefepime
AUC Dosing Plan
- Empiric Dosing
Initial / Loading Dose: 2000 mg @ 2354
Maintenance Regimen: 1000 mg Q12H
Estimated AUC (mcg*h/mL): 495
Estimated Peak (mcg*h/mL): 30.9
Estimated Trough (mcg/ml): 12.7
Estimated Half Life (H): 8.6
- Monitoring
No levels ordered at this time: level to be ordered upon follow-up
Pharmacokinetics Vancomycin I
- -
Patient Age: 54
Patient Sex: Female
Vancomycin Day #: 1
Indication: Skin And Soft Tissue
Requesting Provider: Annamaria Medrano
Height / Weight:
Height 5 ft 4 in
Actual Weight 74.389 kg
- Vital Signs / Lab Results
Temp Pulse Resp BP Pulse Ox
99.0 F 98 18 131/74 96
01/21/25 02:28 01/21/25 02:28 01/21/25 02:28 01/21/25 02:28 01/21/25 02:28
Lab Results - Hematology
01/20/25 01/20/25
20:31 23:12
WBC Cancelled 9.0
Lab Results - Chemistry
01/20/25 01/20/25
20:31 23:11
BUN Cancelled 15
Creatinine Cancelled 0.7
Estimated Creat Clear Cancelled 92
Albumin Cancelled 3.3 L
01/20/25
23:12
Lactic Acid 0.6 L
Microbiology Results
01/21/25 00:52 Influenza Types A & B (STEPHEN) - Final
Nasal Swab Negative for Influenza A & B, NAAT
Negative results must be combined with clinical observations
and patient history.
Nucleic Acid Amplification test (NAAT)performed on the
[employer] platform.
[2025-01-21 04:28] LABS: Hematocrit 27.8 % (37.0-47.0); Hemoglobin 9.3 g/dL (12.0-16.0); Mean Corp Hgb Conc. 33.5 g/dL (33.0-37.0); Mean Corpuscular Volume 93.9 fL (81.0-99.0); Platelet Count 186 10^3/uL (130-400); Red Cell Dist. Width 12.7 % (11.5-14.5)
[2025-01-21 04:53] LABS: Blood Urea Nitrogen 13 mg/dl (7-17); Calcium 8.8 mg/dl (8.4-10.2); Carbon Dioxide 26 mmol/L (22-30); Chloride 103 mmol/L (98-107); Estimated Creatinine Clearance 107 ml/min; Glucose 88 mg/dl (70-99); Potassium 4.0 mmol/L (3.5-5.1); Sodium 135 mmol/L (135-145); eGFR > 60.00
--- NOTE | 2025-01-21 08:28 | PHA.VAN.FU ---
Vancomycin Assessment / Plan
- Assessment
Renal Function: Stable
WBC's are: WNL
In the past 24 hrs, patient has been: Afebrile
Concomitant Antimicrobials: cefepime
- Dosing Plan
Adjust Regimen to: Vanc 1250mg Q12H starting at 1800
New Regimen Predicts: AUC (554), Peak (35.8), Trough (13.5)
Dosing Comments: give 1g scheduled for this AM and adjust admin times with new regimen
Anticipate patient to have higher clearance than population PK based on age and and cancer
Patients with cancer may have higher vancomycin clearance - Pharmacotherapy. 2019;40(72):9000-1615
- Monitoring Plan
No level(s) ordered at this time: consider levels in next few days
- Follow Up
Pharmacy will continue to follow.
Vancomycin Follow UP
- -
Patient Age: 54
Patient Sex: Female
Vancomycin Day #: 2
Indication: Skin And Soft Tissue
Requesting Provider: Annamaria Medrano
Pertinent Antimicrobial Allergies:
penicillins - rash
Height / Weight:
Height 5 ft 4 in
Actual Weight 74.389 kg
Pertinent Past Medical History: breast cancer s/p chemo and bilateral mastectomy
- Vital Signs / Lab Results
Temp Pulse Resp BP Pulse Ox
99.0 F 98 18 131/74 96
01/21/25 02:28 01/21/25 02:28 01/21/25 02:28 01/21/25 02:28 01/21/25 02:28
Lab Results - Hematology
01/20/25 01/20/25 01/21/25
20:31 23:12 04:02
WBC Cancelled 9.0 7.6
Lab Results - Chemistry
01/20/25 01/20/25 01/21/25
20:31 23:11 04:02
BUN Cancelled 15 13
Creatinine Cancelled 0.7 0.6
Estimated Creat Clear Cancelled 92 107
Albumin Cancelled 3.3 L
01/20/25
23:12
Lactic Acid 0.6 L
Microbiology Results
01/21/25 00:52 Influenza Types A & B (STEPHEN) - Final
Nasal Swab Negative for Influenza A & B, NAAT
Negative results must be combined with clinical observations
and patient history.
Nucleic Acid Amplification test (NAAT)performed on the
[employer] platform.
[2025-01-21] MEDS: STERILE WATER FOR INJECTION 10 ML IV ×2 (08:43→16:59)
[2025-01-21] MEDS: MAXIPIME 2000 MG IV ×2 (08:50→17:00)
[2025-01-21] MEDS: VANCOCIN 200 IV (08:51)
[2025-01-21] MEDS: NEURONTIN 600 MG PO ×3 (08:52→21:36)
[2025-01-21] MEDS: TOPROL XL 25 MG PO (08:53)
[2025-01-21] MEDS: ZYRTEC 10 MG PO (08:54)
[2025-01-21] MEDS: MAGNESIUM OXIDE 400 MG PO (08:54)
--- NOTE | 2025-01-21 08:55 | CON.ID ---
Addendum entered and electronically signed by Nithya Solis MD 01/21/25 14:31:
gram stain reviewed - GNR in both of the wound cultures. Stopped vancomycin
Original Note:
Consultation
-
Date/Time Consultation Requested: 01/21/25 2:24
Date/Time Consultation Performed: 01/21/25 8:55
Requesting Provider: Dr Waldrop
Performing Provider: Dr Solis
Reason for Consultation: breast cellulitis/abscess.
Chief Complaint / Past History
Chief Complaint
drainage from left breast
History of Present Illness
Ms Langley is a 54 year old female with recent diagnosis of breast cancer s/p bilateral mastectomy, lymph node dissection and placement of expanders, chemotherapy, currently on Phesgo. Her last chemotherapy was in November and phesgo shot was 5
days ago.
She developed fevers to 104 starting 01/18 and 01/20 profuse serous drainage from the left breast incision site. The amount of fluid is continuously soaking pads. There is bilateral tenderness of the tissue expanders and fullness. She denies
cough, rhinorrhea, sore throat, shortness of breath, abdominal pain, nausea, vomiting, diarrhea, dysuria. She had outpatient CXR and UA 01/19 and both were nonrevealing, blood cultures x2 were also sent that day and are in progress.
In the ER she was afebrile, running hypertensive, pulse in the 80s, wbc 9.0, hgb 9.3, plt 183, L shift, na 137, cr 0.7, lactic acid 0.6, lfts wnl, a covid ag was negative, CT chest fluid collections around bilateral tissue expanders L >R with
surrounding inflammatory change and skin thickening, wound culture gram stain pending, blood cultures x2 in progress no growth to date, she has been on vancomycin and cefepime
Past History
Additional Past Medical History:
(Atrial fibrillation on anticoagulation), Cancer (Breast cancer status post bilateral mastectomy) and GERD
Additional Past Surgical History:
(X 2) and Other (Bilateral mastectomies, bilateral SLN mapping and biopsies)
Allergy History:
Penicillins Allergy (Verified 01/20/25 20:31)
Rash
Medications Reviewed: Yes
Social History
Tobacco: Non-Smoker
Alcohol: None
Drug: None
Family History
Family History: Not Pertinent
Review of Systems
Review of Systems
Constitutional: Reports Fever
EENT: Reports No Symptoms
Respiratory: Reports No Symptoms
Cardiac: Reports No Symptoms
Abdomen/GI: Reports No Symptoms
: Reports No Symptoms
Musculoskeletal: Reports No Symptoms
Neurological: Reports No Symptoms
Endocrine: Reports No Symptoms
Hematologic/Lymphatic: Reports No Symptoms
Psych: Reports No Symptoms
Vital Signs
Temp Pulse Resp BP Pulse Ox
98.2 F 77 16 138/64 95
01/21/25 07:00 01/21/25 07:00 01/21/25 07:00 01/21/25 07:00 01/21/25 07:00
Physical Exam
Physical Exam
Constitutional: No Acute Distress
Cardiovascular: Regular Rate and S1/S2; Negative Murmur or Rub
Pulmonary: Clear and Symmetric; Negative Wheezes, Rales or Rhonchi
Gastrointestinal: Soft, Non Tender, Non Distended and Normal Bowel Sounds
Skin: Warm and Dry; Negative Rash or Jaundice
Wound: Other (bilateral surgical sites with eschar surrouded by several cm of slough, L breast with some fluctuance and oozing scant drainage with palpation)
Lab / Diagnostic Study Results
01/21/25 04:02
01/21/25 04:02
Abs Immat Gran (auto) 0.0 10^3/uL (0-0.05) 01/20/25 23:12
Absolute Neuts (auto) 6.3 10^3/uL (1.4-6.5) 01/20/25 23:12
Absolute Lymphs (auto) 1.5 10^3/uL (1.2-3.4) 01/20/25 23:12
Absolute Monos (auto) 0.6 10^3/uL (0.1-0.6) 01/20/25 23:12
Absolute Basos (auto) 0.0 10^3/uL (0-0.2) 01/20/25 23:12
Immature Gran % 0.4 % (0-0.5) 01/20/25 23:12
Neutrophils % 70.0 % (42.2-75.2) 01/20/25 23:12
Lymphocytes % 16.5 % (20.5-51.1) L 01/20/25 23:12
Monocytes % 7.1 % (1.7-9.3) 01/20/25 23:12
Eosinophils % 5.8 % (0-6) 01/20/25 23:12
Basophils % 0.2 % (0-2) 01/20/25 23:12
Lactic Acid 0.6 mmol/L (0.7-2.0) L 01/20/25 23:12
Microbiology Results
Micro:
01/21/25 00:52 Influenza Types A & B (STEPHEN) - Final
Nasal Swab Negative for Influenza A & B, NAAT
Negative results must be combined with clinical observations
and patient history.
Nucleic Acid Amplification test (NAAT)performed on the
[employer] platform.
01/21/25 01:14 MRSA Screen - Pending
Nose
01/20/25 23:12 Wound Culture - Pending
Chest - Left Gram Stain - Pending
Assessment / Plan
Surgical Site Infection
Possible tissue therapeutic strategy lead infection
Fevers
bilateral breast cancer on phesgo
Allergy to penicillin - rash
- 01/20 wound culture and gram stain pending - by report this was taken from the slough
- 01/21 wound culture of the scant serous drainage (I obtained)
- 01/19 blood cultures x2 in progress no growth to date
- agree with vancomycin - this requires close clinical monitoring for toxicity
- agree withe cefepime
- follow up plastic surgery consult
--- NOTE | 2025-01-21 10:52 | CON.PS ---
Consultation - Plastic Surgery
Consultation Request
Date/Time Consultation Requested: 01/21/25
Date/Time Consultation Performed: 01/21/25
Performing Provider: AMANDA Conley MD
Reason for Consultation: Left bareback rider drainage
Medical History
-
Chief Complaint: Left bareback rider wound drainage
History of Present Illness:
Well known to me for history of breast CA, chemo, s/p bilateral skin sparing mastectomy with immediate bareback rider reconstruction. Plan for ALEXEY flap on Feb 02.
Developed concern for fevers over last few days, no other symptoms. Developed increasing drainage of left breast wound
CT scan shows seroma of the left breast
Allergies / Home Medications
Allergy/AdvReac Type Severity Reaction Status Date / Time
Penicillins Allergy Rash Verified 01/21/25 09:19
�Medication �Instructions �Recorded �Confirmed �Type
albuterol sulfate 90 mcg/actuation 1 puff inhalation PRN PRN 06/30/24 01/21/25 History
aerosol inhaler intermittent asthma
cetirizine 10 mg tablet (Zyrtec) 10 mg PO DAILY Allergies 06/30/24 01/21/25 History
fluticasone propionate 50 1 spray intranasal DAILY PRN 06/30/24 01/21/25 History
mcg/actuation nasal allergies
spray,suspension
metoprolol succinate 25 mg 25 mg PO DAILY #30 tabs 09/25/24 01/21/25 Rx
tablet,extended release 24 hr
(Toprol XL)
famotidine 20 mg tablet (Pepcid) 20 mg PO DAILY PRN reflux 12/07/24 01/21/25 History
magnesium 200 mg tablet 400 mg PO DAILY Supplement 12/07/24 01/21/25 History
acetaminophen 500 mg tablet 1,000 mg (2 x 500 mg) PO Q6 30 12/15/24 01/21/25 Rx
(Tylenol Extra Strength) days #240 tabs
tramadol 50 mg tablet 50 - 100 mg (1 - 2 x 50 mg) PO 12/15/24 01/21/25 Rx
Q6HPRN PRN pain 7 days #20 tabs
gabapentin 600 mg PO 3XD 01/21/25 01/21/25 History
meloxicam 7.5 mg PO 1XD 01/21/25 01/21/25 History
tramadol 200 mg tablet,extended 200 mg PO HS 01/21/25 01/21/25 History
release 24 hr
Physical Exam
Vital Signs
Temp 98.2 F 01/21/25 07:00
Temp route: Oral 01/21/25 07:00
Pulse 77 01/21/25 07:00
Resp Rate 16 01/21/25 07:00
Blood pressure 138/64 01/21/25 07:00
Blood pressure extremity used: Left calf 01/21/25 07:00
Position: Lying 01/21/25 07:00
MAP (cuff-Thelma Monitor) 79 01/21/25 02:00
MAP 128 01/20/25 20:27
SaO2 95 01/21/25 07:00
Oxygen Mode of Delivery Room air 01/21/25 07:00
Can the patient verbally communicate their pain? Yes 01/21/25 03:33
Pain scale ratin 01/21/25 02:49
Actual Weight 164 lb 01/21/25 02:11
Body Mass Index (BMI) 28.2 01/21/25 02:11
PEx:
NAD
No increased WOB
Right breast bareback rider in place, marginal wound eschar dry and stable
Left breast bareback rider in place, increased fluid collection, worsening fibrinous debris at wound margins
No erythema is present, purulence
Lab Results
01/21/25 04:02
01/21/25 04:02
Assessment / Plan
-
Seroma of the left breast reconstruction with bareback rider in place
Culture obtained to determine possible superinfection, no clinical evidence at present
Discussed with her the options to drain the fluid, remove the bareback rider and place a drain, remove and replace the bareback rider.
She would like to take the route with the lowest likelihood of issue between now and her flap. I believe that is removal and placement of a drain to prevent recurrent seroma formation or persistent infection
She is on board with this plan
NPO at midnight
OR tomorrow
Awaiting culture data, will obtained deep cultures in OR
Data Reviewed
-
CT Scan: Image Personally Visualized and interpreted
--- NOTE | 2025-01-21 11:40 | WOUNDNOTE ---
AMADO RN note: Patient admitted with postoperative abscess.
See H&P for complete history. Lives with and children.
PMH: Past Medical History: Reports Arrhythmia (Atrial fibrillation on anticoagulation), Cancer (Breast cancer status post bilateral mastectomy) and GERD
Past Surgical History: Reports (X 2) and Other (Bilateral mastectomies, bilateral SLN mapping and biopsies)
Wound Location and type/assessment: Patient admitted with: post b/l mastectomy full thickness wounds. R breast with intact dry brown/child eschar, no drainage. L breast with draining FT ulcer, patient states sometimes drainage gushes out. Serous
drainage on dressing, no odor. Reviewed Dr. Conley's note, L breast with seroma, for removal of campaign associate and placement of drain in OR tomorrow. Plan is for flap to left breast February 02 per plastic surgeon. Patient able to turn self, sacrum and
heels are intact.
Appetite: Good, encouraged protein in diet, she states she has been using protein powder in shakes.
Pressure redistribution devices in place: Accumax, patient is ad cedric.
Plan: R breast applied silicone foam to protect eschar. Asked Dr. Conley if he feels Santyl necessary for R breast. He recommended to hold off and will take another look tomorrow if needs debridement. L breast dressing changed, defer to Dr. Conley
for further wound care orders post surgery, for now dry dressing applied.
Will confirm orders with hospitalist and updated nurse Walker.
Updated care plan and will follow as needed.
Note to case management of equipment requested for discharge: TBD
Recommend follow up with plastic surgeon.
--- NOTE | 2025-01-21 11:41 | CM ---
Patient seen bedside, initial assessment completed. Patient is a 54-year-old female with past medical history significant for GERD, atrial fibrillation on anticoagulation, migraine headaches, recent diagnosis of breast cancer status post bilateral
mastectomy in December 14 coming to the emergency department with fever.
Patient resides w/ spouse, their twin sons (15) and daughter who is college aged that comes home sometimes. 2STH, 2 steps to enter. Patient is independent in all areas, no DME reported. No therapy/HC hx. OP PT hx for shoulder.
Address, point of contact and insurance verified
PCP: Sanjuana Gonzalez PA-C
Pharmacy: [facility]
Plan for OR tomorrow morning
Plan: Home, no needs when stable
--- NOTE | 2025-01-21 13:50 | W.PN.HOSP.TC ---
Today's Communication/Plan
-
Abx
F/u cultures
NPO for OR tomorrow, drain placement
Assessment / Plan
Assessment / Plan
Physical Exam
General: Well Developed, Well Nourished and No Apparent Distress
HEENT: NormoCephalic, Moist mucous membranes and Atraumatic
Respiratory: Clear
Cardiac: S1/S2 and Regular Rhythm; No Murmur or Rub
GI: Soft, Non Tender, Non Distended and Normal Bowel Sounds; No Organomegaly
Rectal: Deferred by Provider
Musculoskeletal: No Clubbing, No Cyanosis and No Edema
Skin: Rash and Other (She has a well-healed scar on the right breast. On the left breast there is opening of the incision site with subcutaneous fat seen and ongoing drainage of clear serosanguineous fluid, no obvious pus collection. There is some
mild surrounding erythema without induration.)
Neuro: AO x 3 and Nonfocal/grossly intact
Hematologic/Lymphatic: No Lymphadenopathy
Psych: Calm
54-year-old female with past medical history of breast cancer status post chemo with bilateral mastectomy and single ending machine operator placement in December coming to the emergency department with fever for the last 3 days with a Tmax of 104 at home. She has new
drainage coming from the left breast incision site that appears serosanguineous. She does have a CT scan showing likely collection surrounding the tissue expanders bilaterally suggestive of postoperative changes but a superimposed infection cannot
be ruled out entirely.
PLAN:
Fevers
Surgical site infection
� Possible tissue single ending machine operator infection
� Continue antibiotics of vancomycin and cefepime
� Plastic surgery and infectious disease consulted
� Plan for removal and placement of a drain to prevent recurrent seroma formation or persistent infection
�N.p.o. at midnight, work tomorrow
� Follow cultures
- Wound dressing changes
A-fib -very transient episode of atrial fibrillation. Patient has been followed up by cardiology and completed a 1 month course of anticoagulation
- No further anticoagulation per cardiology
- Continue metoprolol 25 daily
Breast cancer
- Continue supportive therapies with gabapentin, tramadol and meloxicam
- Continue Pepcid-continue Zyrtec
-Continue mag oxide
DVT prophylaxis�HSQ
CODE STATUS�full code
Anticipated Discharge: > 48 hours
Subjective/Interval History
-
Date of Service: January 21, 2025
no acute events overnight
Objective Data
-
Labs:
Laboratory Results
01/21/25
04:02
WBC 7.6
Hgb 9.3 L
Hct 27.8 L
Plt Count 186
Sodium 135
Potassium 4.0
Chloride 103
Carbon Dioxide 26
BUN 13
Creatinine 0.6
Glucose 88
Calcium 8.8
Vital Signs:
Vital Signs
Temp Pulse Resp BP Pulse Ox
98.2 F 77 16 138/64 95
01/21/25 07:00 01/21/25 07:00 01/21/25 07:00 01/21/25 07:00 01/21/25 07:00
I&O
01/20/25 01/21/25 01/22/25
06:59 06:59 06:59
Intake Total 480 / 480 120 / 120
Balance 480 / 480 120 / 120
Review of Systems
-
History Source: Patient
All other systems: Not reviewed unless documented
Data Reviewed
-
Diagnostic Radiology: Report Reviewed by me
CT Scan: Report Reviewed by me
Labs: Labs Reviewed by me
[2025-01-21] MEDS: HEPARIN 5000 UNITS SC (16:59)
[2025-01-21] MEDS: NON-FORMULARY ITEM 1 UNIT PO (20:24)
[2025-01-21] MEDS: ULTRAM 50 MG PO (21:36)
[2025-01-22] VITALS (11 sets, daily range): BP systolic 5–150; BP diastolic 62–82
[2025-01-22] MEDS: HEPARIN 5000 UNITS SC ×3 (01:05→17:11)
[2025-01-22] MEDS: MAXIPIME 2000 MG IV ×3 (01:07→17:12)
[2025-01-22] MEDS: STERILE WATER FOR INJECTION 10 ML IV ×3 (01:07→17:12)
[2025-01-22 04:48] LABS: Hematocrit 30.8 % (37.0-47.0); Hemoglobin 9.5 g/dL (12.0-16.0); Mean Corp Hgb Conc. 30.8 g/dL (33.0-37.0); Mean Corpuscular Volume 99.4 fL (81.0-99.0); Platelet Count 210 10^3/uL (130-400); Red Cell Dist. Width 12.6 % (11.5-14.5)
[2025-01-22 05:17] LABS: ALT (SGPT) 20 U/L (0-35); AST (SGOT) 19 U/L (14-36); Albumin 3.3 g/dl (3.5-5.0); Alkaline Phosphatase 72 U/L (38-126); Blood Urea Nitrogen 12 mg/dl (7-17); Calcium 8.9 mg/dl (8.4-10.2); Carbon Dioxide 28 mmol/L (22-30); Chloride 105 mmol/L (98-107); Estimated Creatinine Clearance 92 ml/min; Glucose 88 mg/dl (70-99); Potassium 4.3 mmol/L (3.5-5.1); Sodium 139 mmol/L (135-145); Total Protein 5.5 g/dl (6.3-8.2); eGFR > 60.00
[2025-01-22] MEDS: ULTRAM 50 MG PO ×2 (09:09→21:38)
[2025-01-22] MEDS: MAGNESIUM OXIDE 400 MG PO (09:10)
[2025-01-22] MEDS: NEURONTIN 600 MG PO ×3 (09:10→21:38)
[2025-01-22] MEDS: TOPROL XL 25 MG PO (09:10)
[2025-01-22] MEDS: ZYRTEC 10 MG PO (09:10)
--- NOTE | 2025-01-22 11:45 | OR.RPT ---
Operative Report
Operative Report
Date of surgery: 01/22/2025
Surgeon: AMANDA Conley MD
Preoperative diagnosis:
1. History of breast cancer
2. 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
3. Chronic seroma
Postoperative diagnosis: Same
Procedure:
1. Bilateral removal of tissue expanders, breast
2. Bilateral total capsulectomies
3. Debridement to fascia, bilateral, 15 x 15 cm
Anesthesia: General
Complications: None
EBL: 30 cc
Specimens: Right and left breast fluid and tissue for culture
Indications for procedure: Patient is a 54-year-old female who had a diagnosis of breast cancer and undergone neoadjuvant chemotherapy. She underwent bilateral skin sparing mastectomy and immediate reconstruction with tissue expanders as a staged
procedure for ALEXEY flap. She followed a routine postoperative course save for some mastectomy skin margin eschar. She developed bilateral seromas prompting her to present to the ED. She did have drainage out of the left breast. No drainage of
the right breast. CT was performed and confirmed periprosthetic fluid bilaterally. After conversation with the patient, decision was made to remove the bilateral expanders as she had adequate skin access for the ALEXEY flap. Cultures will be taken
to ensure no superimposed infection. She will still be able to proceed with her ALEXEY flap as planned. Risk reviewed and consents were confirmed
Procedure in detail: Patient was taken back to the operating placed supine on table. Anesthesia was induced the patient was prepped and draped in usual sterile fashion using Betadine. Timeout for patient safety was performed was confirmed and
antibiotics were administered and bilateral SCDs were in place. Procedure began on the right to avoid cross-contamination of culture data. The prior vertical scar was excised with a 15 blade dissection continued with Bovie electrocautery until
swamper was encountered. The swamper was removed and the fluid was cultured, total capsulectomy was performed to remove all residual ADM. Additional debridement was performed with excisional and chemical means via hydrogen peroxide and Betadine
solution. A drain was placed meticulous hemostasis was ensured and blocks were performed. Wound was then closed in layers using 3-0 Monocryl and INSORB stapler. Attention was then drawn to the left side where the wound was again excised sharply
the swamper was removed a total capsulectomy was performed to remove residual ADM. Fluid and tissue cultures were taken and sent. Debridement to fascia was performed 15 x 15 cm using excisional and chemical means. A drain was placed in the wound
was closed in layers using 3-0 Monocryl and INSORB stapler. Patient tolerated the procedure well was performed out complication. All counts were correct at the end the case. She was extubated taken the PACU for the care.
--- NOTE | 2025-01-22 11:45 | W.IMMPOSTOP ---
Surgical Immed Post Op Note
-
Primary Surgeon: AMANDA Conley MD
Assisting Surgeon:
Pre-op Diagnosis: History of breast cancer
Post-op Diagnosis: Same
Procedure Performed: Bilateral mechanical systems engineer removal, capsulectomies, debridement
Anesthesia Type: General
Specimen / Cultures: Right and left breast fluid and tissue cultures
Estimated Blood Loss: 30 cc
Complications: None
Operative Findings: As expected
--- NOTE | 2025-01-22 12:29 | W.PN.HOSP.TC ---
Today's Communication/Plan
-
Follow-up final cultures
Drain placement
Assessment / Plan
Assessment / Plan
Physical Exam
General: Well Developed, Well Nourished and No Apparent Distress
HEENT: NormoCephalic, Moist mucous membranes and Atraumatic
Respiratory: Clear
Cardiac: S1/S2 and Regular Rhythm; No Murmur or Rub
GI: Soft, Non Tender, Non Distended and Normal Bowel Sounds; No Organomegaly
Rectal: Deferred by Provider
Musculoskeletal: No Clubbing, No Cyanosis and No Edema
Skin: Rash and Other (She has a well-healed scar on the right breast. On the left breast there is opening of the incision site with subcutaneous fat seen and ongoing drainage of clear serosanguineous fluid, no obvious pus collection. There is some
mild surrounding erythema without induration.)
Neuro: AO x 3 and Nonfocal/grossly intact
Hematologic/Lymphatic: No Lymphadenopathy
Psych: Calm
54-year-old female with past medical history of breast cancer status post chemo with bilateral mastectomy and golf ball inspector placement in December coming to the emergency department with fever for the last 3 days with a Tmax of 104 at home. She has new
drainage coming from the left breast incision site that appears serosanguineous. She does have a CT scan showing likely collection surrounding the tissue expanders bilaterally suggestive of postoperative changes but a superimposed infection cannot
be ruled out entirely.
PLAN:
Fevers
Surgical site infection
� Possible tissue golf ball inspector infection
� Continue cefepime
� Plastic surgery and infectious disease consulted
� Plan for removal and placement of a drain to prevent recurrent seroma formation or persistent infection 01/22
� Follow cultures, prelim Pseudomonas aeruginosa
- Wound dressing changes
A-fib -very transient episode of atrial fibrillation. Patient has been followed up by cardiology and completed a 1 month course of anticoagulation
- No further anticoagulation per cardiology
- Continue metoprolol 25 daily
Breast cancer
- Continue supportive therapies with gabapentin, tramadol and meloxicam
- Continue Pepcid-continue Zyrtec
-Continue mag oxide
DVT prophylaxis�HSQ
CODE STATUS�full code
Anticipated Discharge: 24 - 48 hours
Subjective/Interval History
-
Date of Service: January 22, 2025
no acute events overnight
Objective Data
-
Labs:
Laboratory Results
01/22/25
04:04
WBC 5.4
Hgb 9.5 L
Hct 30.8 L
Plt Count 210
Sodium 139
Potassium 4.3
Chloride 105
Carbon Dioxide 28
BUN 12
Creatinine 0.7
Glucose 88
Calcium 8.9
Total Bilirubin 0.2
AST 19
ALT 20
Alkaline Phosphatase 72
Vital Signs:
Vital Signs
Temp Pulse Resp BP Pulse Ox
98.4 F 76 20 142/76 96
01/22/25 07:52 01/22/25 09:10 01/22/25 07:52 01/22/25 09:10 01/22/25 07:52
I&O
01/21/25 01/22/25 01/23/25
06:59 06:59 06:59
Intake Total 480 / 480 360 / 360
Balance 480 / 480 360 / 360
Review of Systems
-
History Source: Patient
All other systems: Not reviewed unless documented
Data Reviewed
-
Diagnostic Radiology: Report Reviewed by me
CT Scan: Report Reviewed by me
Labs: Labs Reviewed by me
--- NOTE | 2025-01-22 12:52 | W.PN.UPDATE ---
Update Note
Progress Note Update
Plastic Surgery Update:
Removed both expanders per patient desire to avoid further complications prior to ALEXEY. Grossly unincorporated ADM wasa removed as was the prosthetic devices.
Cultures sent
OK from my perspective to be discharged to home as early as today with po Levofloxacin/Ciprofloxacin as appropriate given preliminary culture data.
Will see her friday or Friday for postop check
--- NOTE | 2025-01-22 13:05 | W.PN.PLAS ---
Progress Note
Subjective Data
Patient is doing well however would rather to avoid further complications going into the ALEXEY flap. Desires removal of bilateral expanders
Objective Data
Vital Signs
Temp Pulse Resp BP Pulse Ox
98.4 F 76 20 142/76 96
01/22/25 07:52 01/22/25 09:10 01/22/25 07:52 01/22/25 09:10 01/22/25 07:52
Intake and Output
01/21/25 01/22/25 01/23/25
06:59 06:59 06:59
Intake Total 480 / 480 360 / 360
Balance 480 / 480 360 / 360
Intake:
Oral fluids 480 / 480 360 / 360
Other:
How many times incontinent 2
MODERATE amount urine
Number of approximated MODERATE 4
amounts of urine
Physical exam:
Bilateral expanders in place
Minor drainage out of left breast wound, serous
No erythema is present bilaterally
No purulence is noted
Lab Results
01/22/25 04:04
01/22/25 04:04
Microbiology Results
01/21/25 09:47 Breast - Left Wound Culture - Preliminary
Pseudomonas aeruginosa
01/21/25 09:47 Breast - Left Gram Stain - Preliminary
01/20/25 23:12 Chest - Left Wound Culture - Preliminary
Pseudomonas aeruginosa
01/20/25 23:12 Chest - Left Gram Stain - Preliminary
01/21/25 01:14 Nose MRSA Screen - Final
No Methicillin Resistant Staphylococcus aureus isolated.
Wound Documentation
01/21/25 11:40 (created 01/21/25 12:11) Wound Note by Calry Vines
WON RN note: Patient admitted with postoperative abscess.
See H&P for complete history. Lives with and children.
PMH: Past Medical History: Reports Arrhythmia (Atrial fibrillation on anticoagulation), Cancer (Breast cancer status post bilateral mastectomy) and GERD
Past Surgical History: Reports (X 2) and Other (Bilateral mastectomies, bilateral SLN mapping and biopsies)
Wound Location and type/assessment: Patient admitted with: post b/l mastectomy full thickness wounds. R breast with intact dry brown/child eschar, no drainage. L breast with draining FT ulcer, patient states sometimes drainage gushes out. Serous
drainage on dressing, no odor. Reviewed Dr. Conley's note, L breast with seroma, for removal of hand slitter and placement of drain in OR tomorrow. Plan is for flap to left breast February 02 per plastic surgeon. Patient able to turn self, sacrum and
heels are intact.
Appetite: Good, encouraged protein in diet, she states she has been using protein powder in shakes.
Pressure redistribution devices in place: Accumax, patient is ad cedric.
Plan: R breast applied silicone foam to protect eschar. Asked Dr. Conley if he feels Santyl necessary for R breast. He recommended to hold off and will take another look tomorrow if needs debridement. L breast dressing changed, defer to Dr. Conley
for further wound care orders post surgery, for now dry dressing applied.
Will confirm orders with hospitalist and updated nurse Walker.
Updated care plan and will follow as needed.
Note to case management of equipment requested for discharge: TBD
Recommend follow up with plastic surgeon.
Initialized on 01/21/25 12:11 - END OF NOTE
Size in centimeters (length/ 3x1x0
width/depth) [Right Breast]
Size in centimeters (length/ 8x3x0.1
width/depth) [Left Breast]
Last measured date [Right 01/21/25
Breast]
Last measured date [Left 01/21/25
Breast]
Physical Exam
Wound:
Size in centimeters (length/ 3x1x0
width/depth) [Right Breast]
Size in centimeters (length/ 8x3x0.1
width/depth) [Left Breast]
Last measured date [Right 01/21/25
Breast]
Last measured date [Left 01/21/25
Breast]
Assessment / Plan
Bilateral seromas after breast reconstruction with tissue expanders, concern for wound breakdown
Plan for bilateral removal of tissue expanders, cultures. After long conversation with the patient, the decision was made to remove the expanders and associated ADM. This will lower to heal in the interim and better prepare her going into her flap
surgery. Risks were reviewed and consents were confirmed.
--- NOTE | 2025-01-22 14:00 | PTCARENOTE ---
pt back from OR with bilateral ENEDINA drains. pt offers no complaints at this time
--- NOTE | 2025-01-22 14:55 | W.PN.ID1 ---
Date of Service
Date of Service: January 22, 2025
Today's Communication
Continue 2g IV q8h cefepime pending final cx data.
Assessment / Plan
Bilateral tissue court abstractor infection
Fevers
bilateral breast cancer
Allergy to penicillin - rash
- 01/20 wound culture - by report this was taken from the slough: Pseudomonas aeruginosa
- 01/21 wound culture of the scant serous drainage - Pseudomonas aeruginosa
- 01/19 blood cultures x2 in progress no growth to date
- 01/22/25 s/p bilateral expanders removed. OR cx's pending
-DC Vancomycin
- Continue 2g IV q8h cefepime pending final cx data.
If Pseudomonas sensitive to FQ, then transition to cipro. EKG in am for QTc.
Chief Complaint
-: Other (breast court abstractor infection)
Subjective / Review of Systems
Asking if she can go home today. She feels well.
Vital Signs / Physical Exam
Vital Signs
Vital Signs
Temp Pulse Resp BP Pulse Ox
97.9 F 73 12 132/62 97
01/22/25 13:33 01/22/25 13:33 01/22/25 13:33 01/22/25 13:33 01/22/25 13:33
Physical Exam
Constitutional: No Acute Distress and Comfortable
Cardiovascular: Regular Rate and S1/S2
Pulmonary: Clear
Gastrointestinal: Soft, Non Tender and Non Distended
Extremities: Negative Edema
Wound: Other (Post-op chest wall dressings dry)
Neurological: AO x 3
Objective Data
Lab Data
Lab Results
01/22/25 04:04
01/22/25 04:04
Estimated Creat Clear 92 ml/min 01/22/25 04:04
Lactic Acid 0.6 mmol/L (0.7-2.0) L 01/20/25 23:12
Total Bilirubin 0.2 mg/dl (0.2-1.3) 01/22/25 04:04
AST 19 U/L (14-36) 01/22/25 04:04
ALT 20 U/L (0-35) 01/22/25 04:04
Alkaline Phosphatase 72 U/L (38-126) 01/22/25 04:04
Most recent labs reviewed.
Micro Results:
01/22/25 12:15 Anaerobic Culture - Pending
Breast - Left
01/22/25 12:15 Wound Culture - Pending
Breast - Right Gram Stain - Pending
01/22/25 12:15 Wound Culture - Pending
Breast - Left Gram Stain - Pending
01/22/25 12:15 Anaerobic Culture - Pending
Breast - Right
01/22/25 12:15 Tissue Culture - Pending
Breast - Left Gram Stain - Pending
01/22/25 12:15 Tissue Culture - Pending
Breast - Right Gram Stain - Pending
01/21/25 09:47 Wound Culture - Preliminary
Breast - Left Pseudomonas aeruginosa
Gram Stain - Preliminary
01/20/25 23:12 Wound Culture - Preliminary
Chest - Left Pseudomonas aeruginosa
Gram Stain - Preliminary
01/21/25 01:14 MRSA Screen - Final
Nose No Methicillin Resistant Staphylococcus aureus isolated.
01/21/25 00:52 Influenza Types A & B (STEPHEN) - Final
Nasal Swab Negative for Influenza A & B, NAAT
Negative results must be combined with clinical observations
and patient history.
Nucleic Acid Amplification test (NAAT)performed on the
[employer] platform.
01/20/[address]: Fluid collections about the bilateral breast tissue expanders (left greater than right), with surrounding inflammatory change and skin thickening. Findings may reflect sterile or infected postoperative fluid collections.
Care Review
Plan reviewed with: Physician (Dr. Ortiz)
[2025-01-22] MEDS: NON-FORMULARY ITEM 1 UNIT PO (20:27)
[2025-01-22] MEDS: PEPCID 20 MG PO (21:38)
[2025-01-23] MEDS: HEPARIN 5000 UNITS SC ×2 (00:22→07:35)
[2025-01-23] MEDS: STERILE WATER FOR INJECTION 10 ML IV ×2 (00:27→07:35)
[2025-01-23] MEDS: MAXIPIME 2000 MG IV ×2 (00:27→07:34)
[2025-01-23 05:27] LABS: Hematocrit 30.3 % (37.0-47.0); Hemoglobin 9.6 g/dL (12.0-16.0); Mean Corp Hgb Conc. 31.7 g/dL (33.0-37.0); Mean Corpuscular Volume 98.4 fL (81.0-99.0); Platelet Count 258 10^3/uL (130-400); Red Cell Dist. Width 12.4 % (11.5-14.5)
[2025-01-23 05:57] LABS: ALT (SGPT) 20 U/L (0-35); AST (SGOT) 18 U/L (14-36); Albumin 3.4 g/dl (3.5-5.0); Alkaline Phosphatase 77 U/L (38-126); Blood Urea Nitrogen 16 mg/dl (7-17); Calcium 9.1 mg/dl (8.4-10.2); Carbon Dioxide 28 mmol/L (22-30); Chloride 104 mmol/L (98-107); Estimated Creatinine Clearance 107 ml/min; Glucose 100 mg/dl (70-99); Potassium 4.4 mmol/L (3.5-5.1); Sodium 135 mmol/L (135-145); Total Protein 5.8 g/dl (6.3-8.2); eGFR > 60.00
[2025-01-23 07:00] VITALS: BP 143/70
[2025-01-23] MEDS: ZYRTEC 10 MG PO (07:36)
[2025-01-23] MEDS: TOPROL XL 25 MG PO (07:36)
[2025-01-23] MEDS: MAGNESIUM OXIDE 400 MG PO (07:36)
[2025-01-23] MEDS: NEURONTIN 600 MG PO (07:36)
[2025-01-23] MEDS: ULTRAM 50 MG PO (07:36)
--- NOTE | 2025-01-23 11:49 | W.PN.HOSP.TC ---
Addendum entered and electronically signed by Ollie Ortiz MD 01/23/25 14:18:
[id number]
Addendum entered and electronically signed by Ollie Ortiz MD 01/23/25 12:12:
Levofloxacin 750mg po qd x 3 weeks.
Original Note:
Today's Communication/Plan
-
DC on Ciprofloxacin to complete course
F/u wound care recs from Plastics
F/u Plastics, Onc, PCP outpatient
f/u cbc, bmp in 1 week
Assessment / Plan
Assessment / Plan
Physical Exam
General: Well Developed, Well Nourished and No Apparent Distress
HEENT: NormoCephalic, Moist mucous membranes and Atraumatic
Respiratory: Clear
Cardiac: S1/S2 and Regular Rhythm; No Murmur or Rub
GI: Soft, Non Tender, Non Distended and Normal Bowel Sounds; No Organomegaly
Rectal: Deferred by Provider
Musculoskeletal: No Clubbing, No Cyanosis and No Edema
Skin: Rash and Other (She has a well-healed scar on the right breast. On the left breast there is opening of the incision site with subcutaneous fat seen and ongoing drainage of clear serosanguineous fluid, no obvious pus collection. There is some
mild surrounding erythema without induration.)
Neuro: AO x 3 and Nonfocal/grossly intact
Hematologic/Lymphatic: No Lymphadenopathy
Psych: Calm
54-year-old female with past medical history of breast cancer status post chemo with bilateral mastectomy and lead ramp agent placement in December coming to the emergency department with fever for the last 3 days with a Tmax of 104 at home. She has new
drainage coming from the left breast incision site that appears serosanguineous. She does have a CT scan showing likely collection surrounding the tissue expanders bilaterally suggestive of postoperative changes but a superimposed infection cannot
be ruled out entirely.
PLAN:
Fevers
Bilateral tissue lead ramp agent infection
� Pseudomonas aeruginosa
- cefepime - Switched to ciprofloxacin for complete course
� Plastic surgery and infectious disease consulted
� Removal and placement of a drain to prevent recurrent seroma formation or persistent infection 01/22
� Wound dressing changes
-F/u Plastics, Onc outpt
A-fib -very transient episode of atrial fibrillation. Patient has been followed up by cardiology and completed a 1 month course of anticoagulation
- No further anticoagulation per cardiology
- Continue metoprolol 25 daily
Breast cancer
- Continue supportive therapies with gabapentin, tramadol and meloxicam
- Continue Pepcid-continue Zyrtec
-Continue mag oxide
DVT prophylaxis�HSQ
CODE STATUS�full code
More than 30 minutes spent in discharge including
Final examination of the patient
Summarizing hospital stay
Instructions for continuing care to all relevant caregivers
Preparation of discharge records, prescriptions, and referral forms
Total time spent (in minutes): 36
Anticipated Discharge: Today
Subjective/Interval History
-
Date of Service: January 23, 2025
no acute events overnight, feels well
Objective Data
-
Labs:
Laboratory Results
01/23/25
05:01
WBC 5.5
Hgb 9.6 L
Hct 30.3 L
Plt Count 258 D
Sodium 135
Potassium 4.4
Chloride 104
Carbon Dioxide 28
BUN 16
Creatinine 0.6
Glucose 100 H
Calcium 9.1
Total Bilirubin 0.3
AST 18
ALT 20
Alkaline Phosphatase 77
Vital Signs:
Vital Signs
Temp Pulse Resp BP Pulse Ox
97.5 F 64 16 143/70 97
01/23/25 07:00 01/23/25 07:00 01/23/25 07:00 01/23/25 07:00 01/23/25 07:00
I&O
01/22/25 01/23/25 01/24/25
06:59 06:59 06:59
Intake Total 360 / 360 1180 / 1180
Output Total 102 / 102
Balance 360 / 360 1078 / 1078
Review of Systems
-
History Source: Patient
All other systems: Not reviewed unless documented
Data Reviewed
-
Diagnostic Radiology: Report Reviewed by me
CT Scan: Report Reviewed by me
Labs: Labs Reviewed by me
--- NOTE | 2025-01-23 12:02 | W.PN.ID1 ---
Date of Service
Date of Service: January 23, 2025
Today's Communication
- Transition 2g IV q8h cefepime to Levofloxacin 750mg po qd x 3 weeks. QTc normal.
Assessment / Plan
Bilateral tissue fashion editor infection
Fevers resolved
bilateral breast cancer
Allergy to penicillin - rash
- 01/19 blood cultures x2 in progress no growth to date
- 01/20 wound culture - by report this was taken from the slough: Pseudomonas aeruginosa, rare CoNS
- 01/21 wound culture of the scant serous drainage - Pseudomonas aeruginosa, rare CoNS
- 01/22/25 s/p bilateral expanders removed. OR cx's bilaterally + Pseudomonas. Per micro +GPC
- Transition 2g IV q8h cefepime to Levofloxacin 750mg po qd x 3 weeks. QTc normal.
Discussed potential side effects of FQ including tendinitis/rupture, C.diff.
Chief Complaint
-: Other (breast fashion editor infection)
Subjective / Review of Systems
Feels well. Wants to go home.
Vital Signs / Physical Exam
Vital Signs
Vital Signs
Temp Pulse Resp BP Pulse Ox
97.5 F 64 16 143/70 97
01/23/25 07:00 01/23/25 07:00 01/23/25 07:00 01/23/25 07:00 01/23/25 07:00
Physical Exam
Constitutional: No Acute Distress and Comfortable
Cardiovascular: Regular Rate and S1/S2
Pulmonary: Clear
Gastrointestinal: Soft, Non Tender and Non Distended
Extremities: Negative Edema
Wound: Other (Post-op chest wall dressings dry)
Neurological: AO x 3
Objective Data
Lab Data
Lab Results
01/23/25 05:01
01/23/25 05:01
Estimated Creat Clear 107 ml/min 01/23/25 05:01
Lactic Acid 0.6 mmol/L (0.7-2.0) L 01/20/25 23:12
Total Bilirubin 0.3 mg/dl (0.2-1.3) 01/23/25 05:01
AST 18 U/L (14-36) 01/23/25 05:01
ALT 20 U/L (0-35) 01/23/25 05:01
Alkaline Phosphatase 77 U/L (38-126) 01/23/25 05:01
Most recent labs reviewed.
Microbiology: Discussed w/ Micro
Micro Results:
01/22/25 12:15 Anaerobic Culture - Preliminary
Breast - Left Culture pending. Anaerobic cultures are examined after 3
days incubation. Additional information to follow.
01/22/25 12:15 Wound Culture - Preliminary
Breast - Left Pseudomonas aeruginosa
Gram Stain - Preliminary
01/22/25 12:15 Anaerobic Culture - Preliminary
Breast - Right Culture pending. Anaerobic cultures are examined after 3
days incubation. Additional information to follow.
01/22/25 12:15 Wound Culture - Preliminary
Breast - Right Pseudomonas aeruginosa
Gram Stain - Preliminary
01/22/25 12:15 Tissue Culture - Preliminary
Breast - Left Pseudomonas aeruginosa
Gram Stain - Preliminary
01/22/25 12:15 Tissue Culture - Preliminary
Breast - Right Pseudomonas aeruginosa
Gram Stain - Preliminary
01/21/25 09:47 Wound Culture - Final
Breast - Left Pseudomonas aeruginosa
Coagulase neg. staphylococcus
Gram Stain - Final
01/20/25 23:12 Wound Culture - Final
Chest - Left Pseudomonas aeruginosa
Coagulase neg. staphylococcus
Gram Stain - Final
01/21/25 01:14 MRSA Screen - Final
Nose No Methicillin Resistant Staphylococcus aureus isolated.
01/21/25 00:52 Influenza Types A & B (STEPHEN) - Final
Nasal Swab Negative for Influenza A & B, NAAT
Negative results must be combined with clinical observations
and patient history.
Nucleic Acid Amplification test (NAAT)performed on the
[employer] platform.
01/20/[address]: Fluid collections about the bilateral breast tissue expanders (left greater than right), with surrounding inflammatory change and skin thickening. Findings may reflect sterile or infected postoperative fluid collections.
Care Review
Plan reviewed with: Physician (Dr. Ortiz)
--- NOTE | 2025-01-23 12:13 | W.DS.TRANS ---
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
-
Discharge Instructions:
Discharge Diagnosis/Procedures Fevers
Bilateral tissue publications editor infection
Diet Low Cholesterol
Activity As tolerated
Blood Work cbc and cmp in 1 week with pcp
Instructions:
Stand-Alone Forms:
Changes to Home Medications: Yes
Discharge Medications:
DC Medications w/original date entered in [employer]
cetirizine 10 mg tablet (Zyrtec) 10 mg PO DAILY Allergies 06/30/24
fluticasone propionate 50 mcg/actuation nasal spray,suspension 1 spray intranasal DAILY PRN allergies 06/30/24
metoprolol succinate 25 mg tablet,extended release 24 hr (Toprol XL) 25 mg PO DAILY #30 tabs 09/25/24
famotidine 20 mg tablet (Pepcid) 20 mg PO DAILY PRN reflux 12/07/24
magnesium 200 mg tablet 400 mg PO DAILY Supplement 12/07/24
acetaminophen 500 mg tablet (Tylenol Extra Strength) 1,000 mg (2 x 500 mg) PO Q6 30 days #240 tabs 12/15/24
tramadol 50 mg tablet 50 - 100 mg (1 - 2 x 50 mg) PO Q6HPRN PRN pain 7 days #20 tabs 12/15/24
gabapentin 600 mg PO 3XD 01/21/25
meloxicam 7.5 mg PO 1XD 01/21/25
tramadol 200 mg tablet,extended release 24 hr 200 mg PO HS 01/21/25
gabapentin 300 mg capsule 600 mg (2 x 300 mg) PO TID #0 caps 01/23/25
levofloxacin 750 mg tablet 750 mg PO Q24H 21 days #21 tabs 01/23/25
Home Medication Changes
levofloxacin 750 mg tablet 750 mg PO Q24H 21 days #21 tabs 01/23/25
Pending Results: No
--- NOTE | 2025-01-23 12:59 | CM ---
CM met with pt at bedside to offer VN. Declined.
Discharge dispo home no skilled needs.
[2025-01-23 15:00] VITALS: BP 139/71
== END 2025-01-23 15:59 | disposition home or self-care (01) | DRG 902 ==
LOC: 4 WEST ACU 01:37
PROVIDERS: Physician Assistant Medical; ADMITTING PHYSICIAN Internal Medicine; ATTENDING PHYSICIAN Internal Medicine; CONSULT PHYSICIAN Surgery Plastic and Reconstructive Surgery; EMERGENCY PHYSICIAN Student in an Organized Health Care Education/Training Program; FAMILY PHYSICIAN Internal Medicine Hematology & Oncology; OTHER PHYSICIAN Student in an Organized Health Care Education/Training Program
PROC: 0HRV077 Replacement of Bilateral Breast using Deep Inferior Epigastric Artery Perforator Flap, Open Approach (ICD-10-PCS; 2025-01-22)
PROC: 0JB60ZZ Excision of Chest Subcutaneous Tissue and Fascia, Open Approach (ICD-10-PCS; 2025-01-22)
PROC: 0HPT0NZ Removal of Tissue Expander from Right Breast, Open Approach (ICD-10-PCS; 2025-01-22)
PROC: 0HPU0NZ Removal of Tissue Expander from Left Breast, Open Approach (ICD-10-PCS; 2025-01-22)
PROC: 0H9V00Z Drainage of Bilateral Breast with Drainage Device, Open Approach (ICD-10-PCS; 2025-01-22)
DX: T85.79XA Infection and inflammatory reaction due to other internal prosthetic devices, implants and grafts, initial encounter (principal); L03.818 Cellulitis of other sites; G43.909 Migraine, unspecified, not intractable, without status migrainosus; K21.9 Gastro-esophageal reflux disease without esophagitis; Z85.3 Personal history of malignant neoplasm of breast; Z90.13 Acquired absence of bilateral breasts and nipples; Z92.21 Personal history of antineoplastic chemotherapy; I48.91 Unspecified atrial fibrillation; Y83.1 Surgical operation with implant of artificial internal device as the cause of abnormal reaction of the patient, or of later complication, without mention of misadventure at the time of the procedure; Z79.01 Long term (current) use of anticoagulants; C50.911 Malignant neoplasm of unspecified site of right female breast; C50.912 Malignant neoplasm of unspecified site of left female breast
CPT/HCPCS: 71260; 80048; 80053; 83605; 85025; 85027; 87070; 87075; 87077; 87147; 87176; 87186; 87205; 87502; 87811; 93005; 96374; 96375; 99284; C1729; Q9967

== ENCOUNTER → 2025-01-24 16:20 | Outpatient (REF) | payer OTHER, SELFPAY | LOC: RAD 16:20 | PROVIDERS: ATTENDING PHYSICIAN Surgery Plastic and Reconstructive Surgery; FAMILY PHYSICIAN Physician Assistant Medical | DX: Z42.1 Encounter for breast reconstruction following mastectomy (principal) | CPT/HCPCS: 74174; Q9967 ==

== ENCOUNTER 2025-02-02 06:10 | Inpatient (IN) | payer OTHER, SELFPAY ==
[2025-02-02] VITALS (22 sets, daily range): BP systolic 71–153; BP diastolic 40–88; BMI 27.3
[2025-02-02] MEDS: LOVENOX 40 MG SC (07:10)
[2025-02-02] MEDS: VANCOCIN 200 IV (07:28)
[2025-02-02] MEDS: NORMOSOL-R/PLASMALYTE-A 1000 IV (07:28)
[2025-02-02 08:15] LABS: Hematocrit 32.7 % (37.0-47.0); Hemoglobin 11.2 g/dL (12.0-16.0); Mean Corp Hgb Conc. 34.3 g/dL (33.0-37.0); Mean Corpuscular Volume 92.1 fL (81.0-99.0); Platelet Count 240 10^3/uL (130-400); Red Cell Dist. Width 13.2 % (11.5-14.5)
--- NOTE | 2025-02-02 16:04 | W.IMMPOSTOP ---
Surgical Immed Post Op Note
-
Primary Surgeon: AMANDA Conley MD
Cosurgeon/Assisting Surgeon: Greg Barton MD; Siobhan Pop MD
Pre-op Diagnosis: H/o breast CA
Post-op Diagnosis: Same
Procedure Performed: Bilateral delayed immediate ALEXEY Flap breast reconstruction
Anesthesia Type: GA
Specimen / Cultures: Per Dr. Pop
Estimated Blood Loss: 150cc
Complications: None
Operative Findings: As expected
--- NOTE | 2025-02-02 16:10 | OR.RPT ---
Operative Report
Operative Report
Date of Service: 02/02/25
Surgeon: Greg Barton MD
Station Installation Supervisor/Cosurgeon: Jeaneth Conley MD
Second Seo Manager: Siobhan Pop MD
Pre-op diagnosis:
1.� Personal history of breast cancer
2. Status post bilateral mastectomies
3. Failed tissue manager equipment based breast reconstruction bilaterally
Postop diagnosis: Same
Procedure:
1. Bilateral breast reconstruction with ALEXEY flaps
2.� Local tissue rearrangement of the bilateral breasts measuring 225 cm2 on each side
3. Left internal mammary lymph node biopsy
5. Application of disposable negative pressure incisional wound VAC
Anesthesia: General
EBL: 150 cc
Specimens:
1.� Left internal mammary lymph node
Drains: 4 15 Japanese Catrachito drains
Complications: none
Indications:
This is a 54-year-old female with a past medical history significant for right breast cancer with skin sparing mastectomies and manager equipment based reconstruction. This was complicated by loss of her bilateral breast expanders. She was now interested in
moving forward with autologous reconstruction. Given the anticipated bilateral ALEXEY flap breast reconstruction, I was asked to be involved in her care given the complexity of the case and the need for a second surgeon to do this as safely and
efficiently as possible.
Regarding bilateral free flap breast reconstruction,� she understood the nature of the surgery and all of the risk benefits alternatives were discussed at length.� Specific risks included flap failure or thrombosis, hematoma, seroma, poor wound
healing and compromise to the abdominal wall.� All questions were answered and consents were signed.
Operative findings:
The patient was identified in the preoperative area and consents were confirmed. The bilateral breasts were marked out as was the elliptical infraumbilical donor site. All questions were answered. She was brought to the operating room and placed
supine on the operative table.� General anesthesia was induced with an endotracheal tube. The arms were tucked bilaterally and a Teresa catheter was placed.� Preoperative Lovenox and antibiotics were administered, and SCDs were placed.� The patient's
bilateral breasts and abdomen were prepped and draped in normal standard fashion using chlorhexidine prep.� A timeout for patient safety was performed.
To start the procedure, Dr. Conley and I were in the abdomen to initiate the dissection of the abdominal flaps. I dissected the left abdominal flap for right breast reconstruction and Dr. Conley worked on the right abdomen for left breast
reconstruction. Dr. Conley assisted me with my portions of the case, and I assisted him with his portions of the case. Please see Dr. Pop and Dr. Conley's separately dictated operative notes. Once Dr. Conley started the intramuscular dissection
of his flap, I went up to the chest to prepare the vessels for microvascular transfer and at this time we began functioning as 2 separate teams.
In the abdomen, bilateral ALEXEY flaps were dissected out. This began with incising the proposed markings superiorly and dissection with a slight bevel upwards to the level of the fascia. Undermining of the supraumbilical flap continue in the midline
above the umbilicus towards the xiphoid. The patient was then flexed at the waist and the lower incision was confirmed to be tenable without undue tension. The patient was returned supine and the lower marking was incised with a 10 blade. The flaps
were then raised laterally to medially be sure to maintain the perforating vessels above the level of the fascia.� On the right side a 5 campaign advisor ALEXEY flap was dissected out.� Similarly on the left side a 5 campaign advisor ALEXEY flap had been dissected
out.�This involved a tedious intramuscular dissection to minimize the amount of muscle harvested with the flap. The pedicles were dissected down to level of the iliac vessels.
In the chest, the previously closed vertical incisions were incised. Electrocautery was utilized to get down to the pectoralis muscle. A local tissue rearrangement was then performed to recreate the mastectomy defect bilaterally. This measured
approximately 15 x 15cm bilaterally, or 225cm2 on each side. The cartilaginous portion of the 3rd rib was then resected bilaterally and the underlying internal mammary vessels were then meticulously and carefully dissected.�Internal mammary lymph
nodes were encountered on the left and this was excised and sent off for pathologic evaluation. Once the vessels were fully dissected circumferentially these were allowed to dilate up while attention was turned to the contralateral breast.� A
pectoralis block was then performed with marcaine and a 15 [place] Catrachito drain was placed through a stab incision the lateral IMF.� This was secured using a 2-0 Prolene suture.
The right hemiabdominal flap was then transferred up to the left chest first. The microvascular anastomosis was then performed.� This was done using a 3.0mm rn orthopedic for the venous anastomosis.� The arterial anastomosis was performed with a handsewn
technique using 8-0 nylon suture.� Upon removal of the microvascular clamps there was excellent perfusion of the flap without any signs of venous or arterial insufficiency.� The flap was then temporarily inset with mraicarmen and attention was turned
to the contralateral side.
The left hemiabdominal flap was then transferred up to the right chest.� The microvascular anastomosis was similarly performed.� On this side a 4.0mm rn orthopedic was again utilized for the venous anastomosis.� The arterial anastomosis was performed in
the same fashion as the contralateral side.� Again there was excellent perfusion noted upon removal of the vascular clamps.
While the microvascular anastomoses were being performed, Dr. Pop was performing the abdominal wall reconstruction.� Again please see her separately dictated operative report for details. Briefly, this involved reapproximation of the muscles
that was divided.� A small piece of Phasix mesh was inset as a underlay with primary fascial closure.� The fascia was closed with interrupted PDS sutures and PDS Stratafix suture. The patient also had an umbilical hernia that was corrected.�
A TAP block was performed bilaterally for postoperative analgesia.� Two 15 Japanese Catrachito drains were placed in the abdomen.� These were similarly secured using 2-0 Prolene sutures.� The abdominal wall was then closed in a layered fashion.� 2-0 Vicryl
suture was utilized in the Kenneth's fascia.� The Insorb dermal stapler was then utilized for reapproximation of the deep dermis.� The superficial skin was then closed using 4-0 Monocryl suture.� The umbilicus was transposed.� This was inset using a
combination of 3-0 Monocryl in the deep dermis and 5-0 nylon suture superficially. A ARACELY incisional wound VAC was applied superficially to maximize wound healing.
The ALEXEY flaps were then inset. The skin was then closed in a layered fashion using 3-0 and 4-0 Monocryl suture.� The ALEXEY flaps were de-epithelialized in all areas that would not be exposed prior to closure.
Doppler signals were identified on both skin islands and there was good punctate bleeding at time of deepithelialization. Signals were marked with 5-0 prolenes.
The wounds were then all dressed and the patient was extubated uneventfully.� All counts were correct at the the completion of the case.� The patient tolerated the procedure very well.�The patient was then transferred to the ICU for
postoperative�monitoring.
I was the primary surgeon for the right ALEXEY flap breast reconstruction and Dr. Nolvia Conley was the primary surgeon for the left side. I assisted him in all aspects of his surgery and he assisted me throughout my procedure and we functioned as
cosurgeons throughout the case so that we could operate in 2 separate surgical johnson at all times to maximize safety and efficiency.
Dr. Siobhan Pop was our second operations and intelligence assistant for this case.� Her assistance was critical and medically necessary to allow us to perform this in a safe and timely manner for this patient.� She assisted with retraction, execution, and closure of this
case. She also was responsible for the abdominal wall reconstruction as a primary surgeon.
--- NOTE | 2025-02-02 16:11 | OR.RPT ---
Operative Report
Operative Report
Date of procedure: 02/02/25
Surgeon: Kiesha
Pre-op DX: Left breast cancer S/P implant based reconstruction; surgically acquired ventral wall hernias
Post-op DX:Same
Procedure: Right mammotomy, right breast capsule resection, bilateral surgically acquired ventral hernia repairs with mesh
The patient is a 54 Y/O female who previously underwent bilateral mastectomies for the treatment of left breast carcinoma. She did experience bilateral tissue zipper ironer infections and had explantation. She presents now for bilateral ALEXEY flaps
performed by Drs. Barton and Yael. I was present throughout the entire case to second assist and perform a right mammotomy and capsulectomy and repair of bilateral surgically-acquired ventral wall hernias as the Plastic Surgeons are not
credentialed in General Surgery. After general anesthesia was induced, a le catheter was placed using aseptic technique. The abdomen and chest were prepped and draped in the usual sterile fashion. An appropriate time out procedure was performed
by all team members and Plastic surgery began harvesting the abdominal wall flaps. I then performed a right mammotomy and capsulectomy. Hemostatis was verified and moist packs were placed in the wound cavities.
After the tissue flaps were harvested, two abdominal wall defects in the anterior abdominal wall had been created both measuring 3 x 20 cm. Two portions of Phasix mesh cut to the bilateral defect size of were fashioned and placed under the anterior
rectus abdominis muscle sheath on each side. Then the anterior abdominal wall fascia was reapproximated with interupted figure of eight 0-Maxon suture. Then an 0-Stratifix suture was used to oversew the repairs on both sides. Bilateral drains were
placed and secured using 2-O Prolene suture. Bilateral blocks were performed using .25% marcaine plain. Kenneth's fascia was closed using 2-0 Polysorb. Ensorb maricarmen were used to close subcutaneous tissue and then skin was closed with a running 4-O
V-lock suture.
The remaining soft tissue and skin closure was performed as described in the Plastic Surgical dictation.
([id number]) [id number] [id number]
--- NOTE | 2025-02-02 16:13 | OR.RPT ---
Operative Report
Operative Report
Date of Service: 02/02/25
Surgeon: Jeaneth Conley MD
Site Manager/Cosurgeon: Greg Barton MD
Second Venereal Disease Investigator: Siobhan Pop MD
Pre-op diagnosis:
1.� Personal history of breast cancer
2. Status post bilateral mastectomies
3. Failed tissue automotive power electronics engineer based breast reconstruction bilaterally
Postop diagnosis: Same
Procedure:
1. Bilateral breast reconstruction with ALEXEY flaps
2.� Local tissue rearrangement of the bilateral breasts measuring 225 cm2 on each side
3. Left internal mammary lymph node biopsy
5. Application of disposable negative pressure incisional wound VAC
Anesthesia: General
EBL: 150 cc
Specimens:
1.� Left internal mammary lymph node
Drains: 4 15 [place] Catrachito drains
Complications: none
Indications:
This is a 54-year-old female with a past medical history significant for right breast cancer with skin sparing mastectomies and automotive power electronics engineer based reconstruction. This was complicated by loss of her bilateral breast expanders secondary to delayed
seromas, culture positive on abx therapy per ID. She healed well following explant and desires to move forward with autologous reconstruction. Given the anticipated bilateral ALEXEY flap breast reconstruction, I asked Dr. Barton to be involved in her
care given the complexity of the case and the need for a second surgeon to do this as safely and efficiently as possible.
Regarding bilateral free flap breast reconstruction,� she understood the nature of the surgery and all of the risk benefits alternatives were discussed at length.� Specific risks included flap failure or thrombosis, hematoma, seroma, poor wound
healing and compromise to the abdominal wall.� All questions were answered and consents were signed.
Operative findings:
The patient was identified in the preoperative area and consents were confirmed. The bilateral breasts were marked out as was the elliptical infraumbilical donor site. All questions were answered. She was brought to the operating room and placed
supine on the operative table.� General anesthesia was induced with an endotracheal tube. The arms were tucked bilaterally and a Teresa catheter was placed.� Preoperative Lovenox and antibiotics were administered, and SCDs were placed.� The patient's
bilateral breasts and abdomen were prepped and draped in normal standard fashion using chlorhexidine prep.� A timeout for patient safety was performed.
To start the procedure, Dr. Barton and I were in the abdomen to initiate the dissection of the abdominal flaps. I dissected the right abdominal flap for left breast reconstruction and Dr. Barton worked on the left abdomen for right breast
reconstruction. Dr. Barton assisted me with my portions of the case, and I assisted him with his portions of the case. Please see Dr. Pop and Dr. Barton's separately dictated operative notes. Once I started the intramuscular dissection of the
flap, Dr. Barton went up to the chest to prepare the vessels for microvascular transfer and at this time we began functioning as 2 separate teams.
In the abdomen, bilateral ALEXEY flaps were dissected out. This began with incising the proposed markings superiorly and dissection with a slight bevel upwards to the level of the fascia. Undermining of the supraumbilical flap continue in the midline
above the umbilicus towards the xiphoid. The patient was then flexed at the waist and the lower incision was confirmed to be tenable without undue tension. The patient was returned supine and the lower marking was incised with a 10 blade. The flaps
were then raised laterally to medially be sure to maintain the perforating vessels above the level of the fascia.� On the right side a 5 feeder tender ALEXEY flap was dissected out.� Similarly on the left side a 5 feeder tender ALEXEY flap had been dissected
out.�This involved a tedious intramuscular dissection to minimize the amount of muscle harvested with the flap. The pedicles were dissected down to level of the iliac vessels.
In the chest, the previously closed vertical incisions were incised. Electrocautery was utilized to get down to the pectoralis muscle. A local tissue rearrangement was then performed to recreate the mastectomy defect bilaterally. This measured
approximately 15 x 15cm bilaterally, or 225cm2 on each side. The cartilaginous portion of the 3rd rib was then resected bilaterally and the underlying internal mammary vessels were then meticulously and carefully dissected.�Internal mammary lymph
nodes were encountered on the left and this was excised and sent off for pathologic evaluation. Once the vessels were fully dissected circumferentially these were allowed to dilate up while attention was turned to the contralateral breast.� A
pectoralis block was then performed with marcaine and a 15 [place] Catrachito drain was placed through a stab incision the lateral IMF.� This was secured using a 2-0 Prolene suture.
The right hemiabdominal flap was then transferred up to the left chest first. The microvascular anastomosis was then performed.� This was done using a 3.0mm shipping hand for the venous anastomosis.� The arterial anastomosis was performed with a handsewn
technique using 8-0 nylon suture.� Upon removal of the microvascular clamps there was excellent perfusion of the flap without any signs of venous or arterial insufficiency.� The flap was then temporarily inset with maricarmen and attention was turned
to the contralateral side.
The left hemiabdominal flap was then transferred up to the right chest.� The microvascular anastomosis was similarly performed.� On this side a 4.0mm shipping hand was utilized for the venous anastomosis.� The arterial anastomosis was performed in the
same fashion as the contralateral side.� Again there was excellent perfusion noted upon removal of the vascular clamps.
While the microvascular anastomoses were being performed, Dr. Pop was performing the abdominal wall reconstruction.� Again please see her separately dictated operative report for details. Briefly, this involved reapproximation of the muscles
that was divided.� A small piece of Phasix mesh was inset as a underlay with primary fascial closure.� The fascia was closed with interrupted PDS sutures and PDS Stratafix suture. The patient also had an umbilical hernia that was corrected.�
A TAP block was performed bilaterally for postoperative analgesia.� Two 15 [place] Catrachito drains were placed in the abdomen.� These were similarly secured using 2-0 Prolene sutures.� The abdominal wall was then closed in a layered fashion.� 2-0 Vicryl
suture was utilized in the Kenneth's fascia.� The Insorb dermal stapler was then utilized for reapproximation of the deep dermis.� The superficial skin was then closed using 4-0 Monocryl suture.� The umbilicus was transposed.� This was inset using a
combination of 3-0 Monocryl in the deep dermis and 5-0 nylon suture superficially. A ARACELY incisional wound VAC was applied superficially to maximize wound healing.
The ALEXEY flaps were then inset. The skin was then closed in a layered fashion using 3-0 and 4-0 Monocryl suture.� The ALEXEY flaps were de-epithelialized in all areas that would not be exposed prior to closure.
Doppler signals were identified on both skin islands and there was good punctate bleeding at time of deepithelialization. Signals were marked with 5-0 prolenes.
The wounds were then all dressed and the patient was extubated uneventfully.� All counts were correct at the the completion of the case.� The patient tolerated the procedure very well.�The patient was then transferred to the ICU for
postoperative�monitoring.
I was the primary surgeon for the left ALEXEY flap breast reconstruction and Dr. Barton was the primary surgeon for the right side. I assisted him in all aspects of his surgery and he assisted me throughout my procedure and we functioned as cosurgeons
throughout the case so that we could operate in 2 separate surgical johnson at all times to maximize safety and efficiency.
Dr. Siobhan Pop was our second radiology assistant for this case.� Her assistance was critical and medically necessary to allow us to perform this in a safe and timely manner for this patient.� She assisted with retraction, execution, and closure of this
case. She also was responsible for the abdominal wall reconstruction as a primary surgeon.
--- NOTE | 2025-02-02 16:31 | PTCARENOTE ---
Received patient from OR, she is on monitor. OR staff at bedside.
[2025-02-02] MEDS: ZOFRAN 4 MG IV (16:39)
[2025-02-02] MEDS: LR 1000 IV ×2 (16:47→23:41)
[2025-02-02] MEDS: DILAUDID 0.5 MG IV (16:58)
--- NOTE | 2025-02-02 17:00 | CON.INTV ---
Consultation
Consultation Request
Date/Time Consultation Requested: 02/02/25
Date/Time Consultation Performed: 02/02/25
Performing Provider: Pawel
Reason for Consultation: Flap
Medical History
-
History of Present Illness:
Patient is a 54-year-old female with previous history of bilateral breast cancer, asthma, atrial fibrillation presenting for elective bilateral mastectomy with ALEXEY flap. She is currently receiving chemotherapy with Taxotere, carboplatin,
Herceptin, Perjeta. Following with Dr. Pop for her breast cancer. Underwent mastectomy with reconstruction today 02/02/2025 and postoperatively transferred to ICU for further management.
Past Medical History
Past Medical History: Other (see list below)
Social History
Tobacco: Non-smoker
Alcohol: None
Drug: None
Family History
Family History: Reviewed & Not Pertinent
Allergies / Home Medications
Allergies
Allergy/AdvReac Type Severity Reaction Status Date / Time
Penicillins Allergy Rash Verified 02/02/25 06:43
Home Medications
�Medication �Instructions �Recorded �Confirmed �Last Taken �Type
cetirizine 10 mg tablet (Zyrtec) 10 mg PO DAILY Allergies 06/30/24 02/02/25 2 Days Ago History
~01/31/25
fluticasone propionate 50 1 spray intranasal DAILY PRN 06/30/24 02/02/25 07/06/24 07:00 History
mcg/actuation nasal allergies
spray,suspension
metoprolol succinate 25 mg 25 mg PO DAILY #30 tabs 09/25/24 02/02/25 02/02/25 05:30 Rx
tablet,extended release 24 hr
(Toprol XL)
famotidine 20 mg tablet (Pepcid) 20 mg PO DAILY PRN reflux 12/07/24 02/02/25 02/01/25 21:00 History
magnesium 200 mg tablet 400 mg PO DAILY Supplement 12/07/24 02/02/25 01/21/25 History
gabapentin 300 mg capsule 600 mg (2 x 300 mg) PO TID #0 caps 01/23/25 02/02/25 02/01/25 19:20 Rx
levofloxacin 750 mg tablet 750 mg PO Q24H 21 days #21 tabs 01/23/25 02/02/25 02/01/25 14:00 Rx
acetaminophen 500 mg tablet 1,000 mg PO Q6 PRN pain 01/31/25 02/02/25 02/01/25 21:00 History
(Tylenol Extra Strength)
aluminum-mag hydroxide-simethicone 10 ml PO PRN PRN Stomach Pain 01/31/25 02/02/25 2 Days Ago History
200 mg-200 mg-20 mg/5 mL oral susp ~01/31/25
linezolid 600 mg tablet 600 mg PO BID 01/31/25 02/02/25 02/01/25 21:45 History
lidocaine 4 % topical cream 1 applic topical ONCE pre-port 02/02/25 02/02/25 02/02/25 05:30 History
access
Review of Systems
-
History Source: Patient
All other systems: Negative unless noted
Vitals / Labs / Diagnostic Testing
Vital Signs
Temp Pulse Resp BP Pulse Ox
98.4 F 71 16 153/88 96
02/02/25 06:25 02/02/25 06:25 02/02/25 06:25 02/02/25 06:25 02/02/25 06:25
Lab Data
02/02/25 08:00
Diagnostic Testing:
Physical Exam
-
HEENT: Normocephalic, Anicteric and Moist Mucous Membranes
Cardiovascular: S1/S2 and Regular Rhythm
Respiratory: Clear and Non-Labored Respirations
GI: Soft, Non Distended and Non Tender
Neurology: Awake, Alert and Oriented
Skin: Warm and Dry
General: Pain, Poor Appetite and Other (nausea)
Assessment
-
Patient is a 54-year-old female with previous history of bilateral breast cancer, asthma, atrial fibrillation presenting for elective bilateral mastectomy with ALEXEY flap. She is currently receiving chemotherapy with Taxotere, carboplatin,
Herceptin, Perjeta. Following with Dr. Pop for her breast cancer. Underwent mastectomy with reconstruction today 02/02/2025 and postoperatively transferred to ICU for further management.
Breast cancer s/p ALEXEY flap 02/02/2025
History of failed tissue expanders
Nausea
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
Breast Cancer - bilateral - diag 06/2024
Bilateral print inspector removal, capsulectomies, debridement 01/22/25 due to fever
Bilateral immediate breast reconstruction with tissue expanders, ADM insertion 12/14/24
Bilateral mastectomies, bilateral sentinel lymph node mapping and biopsy 12/14/24
Afib
Seasonal allergies
Acid reflux
Migraine
section x2
LPS Cholecystectomy
US guided Right and Left breast biopsy - Cancer - 06/2024
Right port placement - 07/2024
Plan
S/p ALEXEY FLAP by plastic surgery POD #0
Observe overnight following procedure
Follow CBC, neurovascular checks
Follow q1 blood flow monitoring to flap
Notify surgical team if compromised
Avoid pressors
Bolus IVFs for hypotension
Pain control, will change meds to IV for nausea
Encouraged patient use prior to movement/PT
Prior h/o lung disease noted including asthma
Prior CXR reviewed, no acute lung process
Continue home meds/inhalers as needed
Restart diet per protocol/advance as tolerated
GI ppx if indicated/history of GERD
DVT ppx held, SCDs
Creat at baseline, follow UO
No signs/symptoms suspicious for infectious etiology at this time.
Will observe off antibiotics for now.
Was recently adm for print inspector infection, explanted
Follow fever curse/wbc
Encourage OOB, early mobility when cleared by surgical team for OOB
PT/OT
Incentive spirometer encouraged to prevent postoperative atelectasis
DVT ppx as indicated postop
SCDs
Monitor 48 hours, frequent vascular checks
If doing well, can transfer to floors with approval by primary team.
Diagnostic Data
Chest X-Ray: 01/19/25- No acute cardiopulmonary process. Bilateral breast implants with air-fluid levels.
CT Scan: CHEST 01/20/25- . Fluid collections about the bilateral breast tissue expanders (left greater than right), with surrounding inflammatory change and skin thickening. Findings may reflect sterile or infected postoperative fluid collections.
Echo: 01/07/25- . Ejection fraction is 60-65% by visual assessment. The Miller EPIQ left ventricular global longitudinal strain is -18.0%.
2. Right ventricular size and systolic function are within normal limits.
3. No significant valvular disease.
4. Compared to a prior transthoracic echocardiogram study from 07/06/2024, no significant changes are seen.
PFT's:
Reports and relevant images were personally reviewed.
Critical Care time 45 mins -- this includes review of history, physical exam, medications, hemodynamic/ventilator parameters, laboratory data, imaging and discussion with house staff, pharmacy, nursing and patient's family.
[2025-02-02] MEDS: VALIUM PO (17:05)
[2025-02-02] MEDS: COMPAZINE 5 MG IV (17:26)
--- NOTE | 2025-02-02 17:39 | PTCARENOTE ---
Patient's blood pressure dropped. Contacted Dr. Harding for 500cc bolus. may repeat it patient does not respond.
[2025-02-02] MEDS: NEURONTIN PO (17:40)
[2025-02-02] MEDS: LR 500 IV ×2 (17:41→18:59)
[2025-02-02] MEDS: NEURONTIN 600 MG PO ×2 (18:19→23:36)
[2025-02-02] MEDS: VALIUM 5 MG PO ×2 (18:20→21:33)
[2025-02-02] MEDS: TORADOL 15 MG IV (18:30)
[2025-02-02] MEDS: LEVAQUIN 750 MG PO (19:32)
[2025-02-02] MEDS: ROXICODONE 5 MG PO ×2 (19:32→23:37)
--- NOTE | 2025-02-02 20:00 | PTCARENOTE ---
Assumed care of patient. Assessment of flap sites done with off-going nurse, see separate documentation. Patient is alert and oriented in bed. Nausea and pain under better control after medication, see separate MAR documentation. Patient is on
bairhugger, core temps. NSR on monitor, blood pressures with MAP > 65 at this time. No edema, pulses are palpable. Lungs are diminished on room air. Abdomen is soft, positive bowel sounds. Surgical site with dressing intact. Temp sensing Teresa in
place, draining light yellow urine. Surgical sites are intact, skin otherwise intact. IV sites intact.
[2025-02-02] MEDS: TYLENOL 1000 MG PO (21:33)
[2025-02-03] VITALS (39 sets, daily range): BP systolic 89–147; BP diastolic 43–80; BMI 29.1
--- NOTE | 2025-02-03 00:11 | PTCARENOTE ---
Patient's blood pressure now with MAPs at 58. BUILDING CONSTRUCTION ENGINEER made aware, 1L IV bolus given for blood pressure. Q1h flap checks being completed. Sites have easily attainable doppler pulses with strong signal. Tissue is soft with good color.
[2025-02-03] MEDS: LR 1000 IV (00:36)
[2025-02-03] MEDS: ROXICODONE 5 MG PO ×2 (03:43→08:35)
--- NOTE | 2025-02-03 04:07 | PTCARENOTE ---
Patient has 6/10 pain, see MAR for separate pain medication charting. No changes in Q1h flap checks. Beach chair position maintained. Drains emptied. Blood pressure with MAP > 65 after fluids.
[2025-02-03 04:20] LABS: Hematocrit 25.1 % (37.0-47.0); Hemoglobin 8.6 g/dL (12.0-16.0); Mean Corp Hgb Conc. 34.3 g/dL (33.0-37.0); Mean Corpuscular Volume 92.6 fL (81.0-99.0); Platelet Count 181 10^3/uL (130-400); Red Cell Dist. Width 13.3 % (11.5-14.5)
[2025-02-03 04:25] LABS: Blood Urea Nitrogen 12 mg/dl (7-17); Calcium 7.8 mg/dl (8.4-10.2); Carbon Dioxide 29 mmol/L (22-30); Chloride 104 mmol/L (98-107); Estimated Creatinine Clearance 87 ml/min; Glucose 106 mg/dl (70-99); Magnesium 2.3 mg/dl (1.6-2.3); Potassium 3.9 mmol/L (3.5-5.1); Sodium 134 mmol/L (135-145); eGFR > 60.00
[2025-02-03 04:48] LABS: INR 1.17; PT 14.7 Sec (11.4-14.6)
[2025-02-03 04:49] LABS: APTT 31.2 Sec (23.4-35.0)
--- NOTE | 2025-02-03 07:23 | W.PN.INTV ---
Today's Communication / Plan
Recommendations
Doing well postop, pain management--will increase doses for better pain control
Continue flap monitoring, postop management per team
Diet advancement, OOB when cleared by team
Assessment
-
Patient is a 54-year-old female with previous history of bilateral breast cancer, asthma, atrial fibrillation presenting for elective bilateral mastectomy with ALEXEY flap. She is currently receiving chemotherapy with Taxotere, carboplatin,
Herceptin, Perjeta. Following with Dr. Pop for her breast cancer. Underwent mastectomy with reconstruction today 02/02/2025 and postoperatively transferred to ICU for further management.
Breast cancer s/p ALEXEY flap 02/02/2025
History of failed tissue expanders
Nausea
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
Breast Cancer - bilateral - diag 06/2024
Bilateral curriculum developer removal, capsulectomies, debridement 01/22/25 due to fever
Bilateral immediate breast reconstruction with tissue expanders, ADM insertion 12/14/24
Bilateral mastectomies, bilateral sentinel lymph node mapping and biopsy 12/14/24
Afib
Seasonal allergies
Acid reflux
Migraine
section x2
LPS Cholecystectomy
US guided Right and Left breast biopsy - Cancer - 06/2024
Right port placement - 07/2024
Plan
S/p ALEXEY FLAP by plastic surgery POD #1
Observe overnight following procedure
Follow CBC, neurovascular checks
Follow q1 blood flow monitoring to flap
Notify surgical team if compromised
Avoid pressors
Bolus IVFs for hypotension
Pain control, will change meds to IV for nausea
Adjustments today
Encouraged patient use prior to movement/PT
Prior h/o lung disease noted including asthma
Prior CXR reviewed, no acute lung process
Continue home meds/inhalers as needed
Restart diet per protocol/advance as tolerated
GI ppx if indicated/history of GERD
DVT ppx held, SCDs
Creat at baseline, follow UO
No signs/symptoms suspicious for infectious etiology at this time.
Will observe off antibiotics for now.
Was recently adm for curriculum developer infection, explanted
Follow fever curse/wbc
Encourage OOB, early mobility when cleared by surgical team for OOB
PT/OT
Incentive spirometer encouraged to prevent postoperative atelectasis
DVT ppx as indicated postop
SCDs
Monitor 48 hours, frequent vascular checks
If doing well, can transfer to floors with approval by primary team.
Diagnostic Data
Chest X-Ray: 01/19/25- No acute cardiopulmonary process. Bilateral breast implants with air-fluid levels.
CT Scan: CHEST 01/20/25- . Fluid collections about the bilateral breast tissue expanders (left greater than right), with surrounding inflammatory change and skin thickening. Findings may reflect sterile or infected postoperative fluid collections.
Echo: 01/07/25- . Ejection fraction is 60-65% by visual assessment. The Miller EPIQ left ventricular global longitudinal strain is -18.0%.
2. Right ventricular size and systolic function are within normal limits.
3. No significant valvular disease.
4. Compared to a prior transthoracic echocardiogram study from 07/06/2024, no significant changes are seen.
PFT's:
Reports and relevant images were personally reviewed.
Critical Care time 31 mins -- The patient is admitted for acute critical illness for the treatment of vital organ failure and/or prevention of further life-threatening conditions. Total care includes time spent in review of history, physical exam,
medications, hemodynamic/ventilator parameters, laboratory data, imaging and discussion with house staff, pharmacy, respiratory therapy, linting machine operator, and nursing.
Subjective Dataa
Subjective Data
Date of Service:
Date of Service: February 03, 2025
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
Subjective:
No events ON, still has 5/10 pain
No new complaints otherwise, not on pressors
Objective Data
Data Reviewed
Vital Signs / I&O / Oxygen:
Vital Signs
Temp Pulse Resp BP Pulse Ox
99.6 F 102 19 114/52 100
02/03/25 06:00 02/03/25 06:30 02/03/25 06:30 02/03/25 06:30 02/03/25 06:30
Intake and Output
02/02/25 02/03/25 02/04/25
06:59 06:59 06:59
Intake Total 4850 / 4850
Output Total 2698 / 2698
Balance 2152 / 2152
SaO2 100
Nasal Cannula flow liters per 2
minute
Physical Exam
General: Comfortable and Other (NAD)
HEENT: Normocephalic, Anicteric and Moist Mucous Membranes
Cardiovascular: S1-S2 and Regular Rhythm
Respiratory: Clear and Non-Labored Respirations
GI: Soft, Non Distended and Non Tender
Neurology: Awake, Alert, Oriented and No Motor Deficits
Skin: Warm, Dry, Good Color and Other (incision on chest with dressings noted)
Labs/Micro/Reports
Lab Data
02/03/25 03:36
02/03/25 03:36
Laboratory Results
02/03/25
03:36
PT 14.7 H
INR 1.17
APTT 31.2
[2025-02-03] MEDS: LOVENOX 40 MG SC (07:28)
[2025-02-03] MEDS: NEURONTIN 600 MG PO ×3 (07:29→23:27)
[2025-02-03] MEDS: TYLENOL 1000 MG PO ×4 (07:30→22:16)
[2025-02-03] MEDS: ZYRTEC 10 MG PO (07:30)
[2025-02-03] MEDS: VALIUM 5 MG PO ×3 (07:30→22:16)
[2025-02-03] MEDS: TORADOL 15 MG IV ×3 (07:32→19:47)
--- NOTE | 2025-02-03 07:45 | PTCARENOTE ---
Assumed care of patient. Pt rec'd A&Ox3. Pleasant. Denies any nausea at present. Abdominal pain noted to be 6 out of 10...see MAR. Able to move all extremities...maintained in beach chair position. S1 S2 reg w/ NSR on monitor. +PP. Trace
generalized edema. Right SCD on...left calf BP cuff on. On 2L N/C...sats 100%. Lungs diminished. Encouraged to cough and deep breath. Abdomen soft...tender...+BS. On clear liquid diet. Able to take pills whole w/o issue. Teresa draining pale
yellow urine. Urine output noted to be > 30ml/hr....see I/O's. Skin pale in color. Neela sarabjitgger on. Abdominal binder on...2 ARACELY dressings noted across transverse abdominal incision...Drsgs dry and intact. 4 ENEDINA's noted...all draining sanguinous
fluid...outputs obtained and recorded q4h. Right SQ port w/ IVF's infusing. LW 18P noted. VS documented. Call cerrato within reach. Safe environment confirmed.
[2025-02-03] MEDS: TOPROL XL 25 MG PO (08:33)
--- NOTE | 2025-02-03 09:00 | W.PN.PLAS ---
Today's Communication
-
le out
reg diet
OOB to chair
Progress Note
Subjective Data
Doing well
Denies SOB
Subjective: Le in Place
Objective Data
Vital Signs
Temp Pulse Resp BP Pulse Ox
98.2 F 85 21 119/53 95
02/04/25 12:00 02/04/25 11:00 02/04/25 11:00 02/04/25 11:00 02/04/25 10:00
Intake and Output
02/03/25 02/04/25 02/05/25
06:59 06:59 06:59
Intake Total 4850 / 4975 1815 / 1815
Output Total 2698 / 2848 2207 / 2207
Balance 2152 / 2127 -392 / -392
Intake:
Oral fluids 600 / 600 1440 / 1440
IV fluids (Total) 3250 / 3375 375 / 375
Bolus 1500 / 1500
Lr 1,000 ml @ 125 mls/hr IV . 1750 / 1875 375 / 375
Q8H SUNNY Rx#:[id number]
IV piggybacks 1000 / 1000
Output:
Drain Output (Total) 163 / 163 237 / 237
A 30 / 30 63 / 63
B 60 / 60 82 / 82
C 13 / 13 8 / 8
D 60 / 60 84 / 84
Urine, Le 1042 / 5605 820 / 820
Urine, Voided 1150 / 1150
PEx:
NAD
No increased WOB
Bilateral breast flaps well perfused in appearance
No evidence of venous congestion
Doppler signals intact
expected swelling
No evidence of undrained fluid collections, breasts soft
Abdomen with dressing intact
Drains serosanguinous with appropriate output
Lab Results
02/04/25 04:02
02/04/25 03:33
Assessment / Plan
s/p bilateral ALEXEY flap breast reconstruction
expected postsurgical/dilutional anemia, no evidence of bleeding
Pathway POD 1
Q 1H flap checks for 48 hours
Lovenox/SCDs
PO pain control
--- NOTE | 2025-02-03 09:55 | PTCARENOTE ---
Seen by at bedside. Ok to cap IVF's, d/c le, and get OOB.
[2025-02-03] MEDS: LR IV (09:58)
[2025-02-03] MEDS: ROXICODONE 10 MG PO ×3 (11:36→20:39)
--- NOTE | 2025-02-03 12:00 | PTCARENOTE ---
Malick d/c'd around 1130. Assist x 2 to get pt OOB to chair. On R/A..sats 97%. No major changes in physical assessment since am. VS documented. Call cerrato within reach. Lunch ordered.
--- NOTE | 2025-02-03 12:18 | CM ---
Initial assessment completed with patient who lives with her , 15 y/o twin sons and a college aged daughter in a 2 story plus basement home with B/B on 2nd and full bathroom on 1st, 2 steps to enter. 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 No DME. No in-home services.. Does have a HC-POA. Some benefits from husbands service. No psychiatric hospitalizations. PCP is [facility]. Pharmacy is [facility] on [address] in [place]. Discharge POC: Home with MELVI RN for drain care day after discharge and beyond.
--- NOTE | 2025-02-03 16:15 | PTCARENOTE ---
Assist x 2 to get back to bed. Pt continent for brown loose stool x 3 today. Voided 300mls of yellow urine after catheter pulled earlier this am. Pt reassessed...no major changes. Flap checks done per MD order...see intervention. Oral intake
improved throughout day...no further nausea or vomiting. PO rc provided for 5/10 abdominal pain...see MAR. Call cerrato in reach.
[2025-02-03] MEDS: LEVAQUIN 750 MG PO (17:48)
--- NOTE | 2025-02-03 20:09 | PTCARENOTE ---
Assumed care of patient. Hand-off assessment completed for Q1h flap checks, see separate charting. Patient is aox4, afebrile, pleasant and cooperative. NSR with palpable pulses, trace edema on exam. Lungs diminished on room air. Abdomen tender at
surgical incision, bowel sounds positive, soft. Continent to bowel and bladder to bathroom with RN. Incisions are well-approximated. IV site c/d/i.
[2025-02-03] MEDS: PEPCID 20 MG PO (21:25)
[2025-02-04] VITALS (27 sets, daily range): BP systolic 98–139; BP diastolic 47–86; PULSE 84; BMI 28.8
[2025-02-04] MEDS: ROXICODONE 10 MG PO ×5 (00:39→16:46)
[2025-02-04] MEDS: TORADOL 15 MG IV ×2 (01:38→07:51)
--- NOTE | 2025-02-04 03:40 | PTCARENOTE ---
No changes in Q1 flap assessments, see separate charting. Patient pain is under control per patient report.
--- NOTE | 2025-02-04 03:41 | PTCARENOTE ---
Patient assist x1 oob to use restroom, voided 850 ml total so far tonight, see I&O charting. Drains emptied and stripped according to MD order.
[2025-02-04 04:05] LABS: Blood Urea Nitrogen 12 mg/dl (7-17); Calcium 8.0 mg/dl (8.4-10.2); Carbon Dioxide 28 mmol/L (22-30); Chloride 108 mmol/L (98-107); Estimated Creatinine Clearance 79 ml/min; Glucose 88 mg/dl (70-99); Potassium 3.6 mmol/L (3.5-5.1); Sodium 135 mmol/L (135-145); eGFR > 60.00
[2025-02-04 04:18] LABS: Hematocrit 21.6 % (37.0-47.0); Hemoglobin 7.1 g/dL (12.0-16.0); Mean Corp Hgb Conc. 32.9 g/dL (33.0-37.0); Mean Corpuscular Volume 94.7 fL (81.0-99.0); Platelet Count 142 10^3/uL (130-400); Red Cell Dist. Width 13.7 % (11.5-14.5)
--- NOTE | 2025-02-04 07:36 | W.PN.INTV ---
Today's Communication / Plan
Recommendations
Doing better in terms of pain management
Encouraged OOB, IS
Further postop management
Discharge planning in next 24 hours per team
Assessment
-
Patient is a 54-year-old female with previous history of bilateral breast cancer, asthma, atrial fibrillation presenting for elective bilateral mastectomy with ALEXEY flap. She is currently receiving chemotherapy with Taxotere, carboplatin,
Herceptin, Perjeta. Following with Dr. Pop for her breast cancer. Underwent mastectomy with reconstruction today 02/02/2025 and postoperatively transferred to ICU for further management.
Breast cancer s/p ALEXEY flap 02/02/2025
History of failed tissue expanders
Nausea
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
Breast Cancer - bilateral - diag 06/2024
Bilateral jackerman removal, capsulectomies, debridement 01/22/25 due to fever
Bilateral immediate breast reconstruction with tissue expanders, ADM insertion 12/14/24
Bilateral mastectomies, bilateral sentinel lymph node mapping and biopsy 12/14/24
Afib
Seasonal allergies
Acid reflux
Migraine
section x2
LPS Cholecystectomy
US guided Right and Left breast biopsy - Cancer - 06/2024
Right port placement - 07/2024
Plan
S/p ALEXEY FLAP by plastic surgery POD #2
Observe overnight following procedure
Follow CBC, neurovascular checks
Follow q1 blood flow monitoring to flap
Notify surgical team if compromised
Avoid pressors
Bolus IVFs for hypotension
Pain control, doing better today
Encouraged patient use prior to movement/PT
Prior h/o lung disease noted including asthma
Prior CXR reviewed, no acute lung process
Continue home meds/inhalers as needed
Restart diet per protocol/advance as tolerated
GI ppx if indicated/history of GERD
DVT ppx held, SCDs
Creat at baseline, follow UO
No signs/symptoms suspicious for infectious etiology at this time.
Will observe off antibiotics for now.
Was recently adm for jackerman infection, explanted
Follow fever curse/wbc
Encourage OOB, early mobility when cleared by surgical team for OOB
PT/OT
Incentive spirometer encouraged to prevent postoperative atelectasis
DVT ppx as indicated postop
SCDs
Discharge planning tomorrow per team
Diagnostic Data
Chest X-Ray: 01/19/25- No acute cardiopulmonary process. Bilateral breast implants with air-fluid levels.
CT Scan: CHEST 01/20/25- . Fluid collections about the bilateral breast tissue expanders (left greater than right), with surrounding inflammatory change and skin thickening. Findings may reflect sterile or infected postoperative fluid collections.
Echo: 01/07/25- . Ejection fraction is 60-65% by visual assessment. The Miller EPIQ left ventricular global longitudinal strain is -18.0%.
2. Right ventricular size and systolic function are within normal limits.
3. No significant valvular disease.
4. Compared to a prior transthoracic echocardiogram study from 07/06/2024, no significant changes are seen.
PFT's:
Reports and relevant images were personally reviewed.
Critical Care time 31 mins -- The patient is admitted for acute critical illness for the treatment of vital organ failure and/or prevention of further life-threatening conditions. Total care includes time spent in review of history, physical exam,
medications, hemodynamic/ventilator parameters, laboratory data, imaging and discussion with house staff, pharmacy, respiratory therapy, manufacturing millwright, and nursing.
Subjective Dataa
Subjective Data
Date of Service:
Date of Service: February 04, 2025
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
Subjective:
Pain better today, no new complaints
Stable on RA, not on pressors
Objective Data
Data Reviewed
Vital Signs / I&O / Oxygen:
Vital Signs
Temp Pulse Resp BP Pulse Ox
98.3 F 94 25 118/47 97
02/03/25 20:00 02/04/25 06:30 02/04/25 06:30 02/04/25 06:00 02/04/25 06:30
Intake and Output
02/03/25 02/04/25 02/05/25
06:59 06:59 06:59
Intake Total 4850 / 4975 1815 / 1815
Output Total 2698 / 2848 2207 / 2207
Balance 2152 / 2127 -392 / -392
SaO2 97
Nasal Cannula flow liters per 2
minute
Physical Exam
General: Comfortable and Other (NAD)
HEENT: Normocephalic, Anicteric and Moist Mucous Membranes
Cardiovascular: S1-S2 and Regular Rhythm
Respiratory: Clear and Non-Labored Respirations
GI: Soft, Non Distended and Non Tender
Neurology: Awake, Alert, Oriented and No Motor Deficits
Skin: Warm, Dry, Good Color and Other (incision on chest with dressings noted)
Labs/Micro/Reports
Lab Data
02/04/25 04:02
02/04/25 03:33
[2025-02-04] MEDS: TYLENOL 1000 MG PO ×4 (07:50→22:09)
[2025-02-04] MEDS: TOPROL XL 25 MG PO (07:51)
[2025-02-04] MEDS: LOVENOX 40 MG SC (07:51)
[2025-02-04] MEDS: VALIUM 5 MG PO ×3 (07:51→22:09)
[2025-02-04] MEDS: ZYRTEC 10 MG PO (07:51)
[2025-02-04] MEDS: NEURONTIN 600 MG PO ×3 (07:51→22:14)
--- NOTE | 2025-02-04 10:30 | VNURNOTE ---
Home Health Liaison met with patient at bedside to discuss [facility] nurse/therapy, visits, schedule and homebound status. Patient is agreeable and understands that visits at home will be 2-3 x per week to assess and teach medical and drain
management. She has had [facility] in the past, is familiar with our services. Patient is aware that [facility] will contact them for start of care day after discharge from . Provided contact number for [facility].
[facility] referral accepted in [facility] Port.
--- NOTE | 2025-02-04 12:00 | PTCARENOTE ---
All assessments unchanged. Pt reports pain controlled on meds provided. Breast flap checks WNL. Incisions and drains C/D/I
--- NOTE | 2025-02-04 13:01 | W.PN.PLAS ---
Today's Communication
-
PT OT
OOB to ambulate
Home tomorrow with VN
Progress Note
Subjective Data
Doing well
Denies SOB
Subjective: Teresa in Place
Objective Data
Vital Signs
Temp Pulse Resp BP Pulse Ox
98.2 F 85 21 119/53 95
02/04/25 12:00 02/04/25 11:00 02/04/25 11:00 02/04/25 11:00 02/04/25 10:00
Intake and Output
02/03/25 02/04/25 02/05/25
06:59 06:59 06:59
Intake Total 4850 / 4975 1815 / 1815
Output Total 2698 / 2848 2207 / 2207
Balance 2152 / 2127 -392 / -392
Intake:
Oral fluids 600 / 600 1440 / 1440
IV fluids (Total) 3250 / 3375 375 / 375
Bolus 1500 / 1500
Lr 1,000 ml @ 125 mls/hr IV . 1750 / 1875 375 / 375
Q8H SUNNY Rx#:[id number]
IV piggybacks 1000 / 1000
Output:
Drain Output (Total) 163 / 163 237 / 237
A 30 / 30 63 / 63
B 60 / 60 82 / 82
C 13 / 13 8 / 8
D 60 / 60 84 / 84
Urine, Teresa 8445 / 5045 820 / 820
Urine, Voided 1150 / 1150
PEx:
NAD
No increased WOB
Bilateral breast flaps well perfused in appearance
No evidence of venous congestion
Doppler signals intact
expected swelling
No evidence of undrained fluid collections, breasts soft
Abdomen with dressing intact
Drains serosanguinous with appropriate output
Lab Results
02/04/25 04:02
02/04/25 03:33
Assessment / Plan
s/p bilateral ALEXEY flap breast reconstruction
expected postsurgical/dilutional anemia, no evidence of bleeding
Pathway POD 2
Q 1H flap checks for 48 hours
Lovenox/SCDs
PO pain control
--- NOTE | 2025-02-04 13:02 | W.DCSUMMARY ---
Discharge Summary
Discharge Data
Date of Admission: 02/02/25
Date of Discharge: 02/05/25
-
Pending Results: No
Hospital Course
Admitted for q1h flap checks following bilateral ALEXEY flap breast reconstruction. Followed a routine postoperative course. Was progressively able to tolerate a regular diet and ambulate. Discharged to home on POD 3 with VN and close surgical follow
up
Discharge Plan
-
Patient Disposition: Home (Routine Discharge)
Discharge Diagnosis/Procedures: s/p Bilateral ALEXEY flap breast reconstruction
Condition: Good
Diet: Regular
Activity: No strenuous activity
Additional Activity: T adelfo arms for ROM
Driving Restrictions: Not until seen by your Dr
Bathing Restrictions: OK to Shower
Other Services: VN
Wound Care: Abd binder as needed for comfort, strip and record drain outputs twice daily, ABD pads to incisional wound as needed
Referrals:
UNKNOWN - PT DOES,NOT KNOW [Family Provider]
Prescriptions:
New
diazepam 5 mg Tablet
5 mg PO TID PRN (Reason: muscle spasms) 14 Days Qty: 42 0RF
enoxaparin 40 mg/0.4 mL Syringe
40 mg SC DAILY 11 Days Qty: 4.4 0RF
oxycodone 5 mg tablet
5 mg PO Q6H PRN (Reason: severe pain) Qty: 10 0RF
Continued
cetirizine [Zyrtec] 10 mg Tablet
10 mg PO DAILY
fluticasone propionate 50 mcg/actuation [place],Suspension
1 spray INTRANASAL DAILY PRN (Reason: allergies)
metoprolol succinate [Toprol XL] 25 mg tablet extended release 24 hr
25 mg PO DAILY Qty: 30 0RF
famotidine [Pepcid] 20 mg Tablet
20 mg PO DAILY PRN (Reason: reflux)
magnesium 200 mg Tablet
400 mg PO DAILY
acetaminophen [Tylenol Extra Strength] 500 mg tablet
1,000 mg PO Q6 PRN (Reason: pain)
alum-mag hydroxide-simeth 200-200-20 mg/5 mL Suspension
10 ml PO PRN PRN (Reason: Stomach Pain)
lidocaine 4 % Cream
1 applic TOPICAL ONCE
gabapentin 300 mg Capsule
600 mg PO TID 30 Days Qty: 180 0RF
levofloxacin 750 mg tablet
750 mg PO Q24H 21 Days Qty: 21 0RF
Discontinued
linezolid 600 mg Tablet
600 mg PO BID
Discharge Orders:
Discharge Patient (As Directed); Ordered 02/05/25
Ordered By: Jose Daniel Conley
Discharge Date and Time
Print Language: GU[place]
--- NOTE | 2025-02-04 16:00 | PTCARENOTE ---
assessments unchanged. pt OOB in chair for majority of the bath. Discharge planning/ education provided, including Lovenox injection education, ENEDINA drain care, and home med schedule.
[2025-02-04] MEDS: LEVAQUIN 750 MG PO (18:10)
--- NOTE | 2025-02-04 18:10 | CM ---
Patient seen at bedside in ICU and referral to [facility] for supports at discharge. Patient plan is for home with [facility] follow up. CM will continue to follow for discharge planning needs.
Plan; home with [facility]
--- NOTE | 2025-02-04 20:30 | PTCARENOTE ---
Rec'd patient resting in bed, assisted to the bathroom. A&O,pain under control with scheduled meds. Afebrile. NSR on monitor. IV line flushed and patent. Pulses palpable. Flap doppler signals strong. ENEDINA X4 with minimal serosang output. ROom air,
clear. Tolerating diet. BM X1 loose, refused colace/senna tonight 2/2 loose BM. Voiding in BR. Will monitor.
[2025-02-05] VITALS (8 sets, daily range): BP systolic 106–143; BP diastolic 46–94; BMI 28.4
--- NOTE | 2025-02-05 01:30 | PTCARENOTE ---
No change in assessment. Pt ambulating to bathroom with minimal difficulty. Strong doppler signals B/Lpaddle sites. WIll monitor.
[2025-02-05] MEDS: ROXICODONE 5 MG PO (04:26)
[2025-02-05] MEDS: MAALOX 30 ML PO (04:26)
[2025-02-05 04:35] LABS: Hematocrit 23.6 % (37.0-47.0); Hemoglobin 7.8 g/dL (12.0-16.0); Mean Corp Hgb Conc. 33.1 g/dL (33.0-37.0); Mean Corpuscular Volume 95.5 fL (81.0-99.0); Platelet Count 165 10^3/uL (130-400); Red Cell Dist. Width 13.7 % (11.5-14.5)
[2025-02-05 04:56] LABS: Blood Urea Nitrogen 10 mg/dl (7-17); Calcium 8.3 mg/dl (8.4-10.2); Carbon Dioxide 29 mmol/L (22-30); Chloride 107 mmol/L (98-107); Estimated Creatinine Clearance 78 ml/min; Glucose 92 mg/dl (70-99); Potassium 3.8 mmol/L (3.5-5.1); Sodium 137 mmol/L (135-145); eGFR > 60.00
--- NOTE | 2025-02-05 06:21 | PTCARENOTE ---
Temp 100.9 PO, TT sent to Dr Conley. Awaiting further orders. Tylenol ATC due at 0800. Will monitor.
--- NOTE | 2025-02-05 07:58 | W.PN.INTV ---
Today's Communication / Plan
Recommendations
Doing well, no new complaints
Pain manageable
Further postop care at home
Discharge planning otherwise per team
Assessment
-
Patient is a 54-year-old female with previous history of bilateral breast cancer, asthma, atrial fibrillation presenting for elective bilateral mastectomy with ALEXEY flap. She is currently receiving chemotherapy with Taxotere, carboplatin,
Herceptin, Perjeta. Following with Dr. Pop for her breast cancer. Underwent mastectomy with reconstruction today 02/02/2025 and postoperatively transferred to ICU for further management.
Breast cancer s/p ALEXEY flap 02/02/2025
History of failed tissue expanders
Nausea
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
Breast Cancer - bilateral - diag 06/2024
Bilateral breaker unit assembler removal, capsulectomies, debridement 01/22/25 due to fever
Bilateral immediate breast reconstruction with tissue expanders, ADM insertion 12/14/24
Bilateral mastectomies, bilateral sentinel lymph node mapping and biopsy 12/14/24
Afib
Seasonal allergies
Acid reflux
Migraine
section x2
LPS Cholecystectomy
US guided Right and Left breast biopsy - Cancer - 06/2024
Right port placement - 07/2024
Plan
S/p ALEXEY FLAP by plastic surgery POD #3
Observe overnight following procedure
Follow CBC, neurovascular checks
Follow blood flow monitoring to flap
Notify surgical team if compromised
Avoid pressors
Bolus IVFs for hypotension
Pain control, doing better today
Encouraged patient use prior to movement/PT
Prior h/o lung disease noted including asthma
Prior CXR reviewed, no acute lung process
Continue home meds/inhalers as needed
Restart diet per protocol/advance as tolerated
GI ppx if indicated/history of GERD
DVT ppx held, SCDs
Creat at baseline, follow UO
No signs/symptoms suspicious for infectious etiology at this time.
Will observe off antibiotics for now.
Was recently adm for breaker unit assembler infection, explanted
Follow fever curse/wbc
Encourage OOB, early mobility when cleared by surgical team for OOB
PT/OT
Incentive spirometer encouraged to prevent postoperative atelectasis
DVT ppx as indicated postop
SCDs
Discharge planning per team
Diagnostic Data
Chest X-Ray: 01/19/25- No acute cardiopulmonary process. Bilateral breast implants with air-fluid levels.
CT Scan: CHEST 01/20/25- . Fluid collections about the bilateral breast tissue expanders (left greater than right), with surrounding inflammatory change and skin thickening. Findings may reflect sterile or infected postoperative fluid collections.
Echo: 01/07/25- . Ejection fraction is 60-65% by visual assessment. The Miller EPIQ left ventricular global longitudinal strain is -18.0%.
2. Right ventricular size and systolic function are within normal limits.
3. No significant valvular disease.
4. Compared to a prior transthoracic echocardiogram study from 07/06/2024, no significant changes are seen.
PFT's:
Reports and relevant images were personally reviewed.
Critical Care time 31 mins -- The patient is admitted for acute critical illness for the treatment of vital organ failure and/or prevention of further life-threatening conditions. Total care includes time spent in review of history, physical exam,
medications, hemodynamic/ventilator parameters, laboratory data, imaging and discussion with house staff, pharmacy, respiratory therapy, cardiac cath lab radiology technologist, and nursing.
Subjective Dataa
Subjective Data
Date of Service:
Date of Service: February 05, 2025
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
Subjective:
No acute events ON, no new issues
Stable
Objective Data
Data Reviewed
Vital Signs / I&O / Oxygen:
Vital Signs
Temp Pulse Resp BP Pulse Ox
97.9 F 100 17 124/94 95
02/05/25 07:12 02/05/25 05:30 02/05/25 05:30 02/05/25 05:00 02/04/25 10:00
Intake and Output
02/04/25 02/05/25 02/06/25
06:59 06:59 06:59
Intake Total 1815 / 1815 180 / 180
Output Total 2207 / 2207 195 / 195
Balance -392 / -392 -15 / -15
SaO2 95
Nasal Cannula flow liters per 2
minute
Physical Exam
General: Comfortable and Other (NAD)
HEENT: Normocephalic, Anicteric and Moist Mucous Membranes
Cardiovascular: S1-S2 and Regular Rhythm
Respiratory: Clear and Non-Labored Respirations
GI: Soft, Non Distended and Non Tender
Neurology: Awake, Alert, Oriented and No Motor Deficits
Skin: Warm, Dry, Good Color and Other (incision on chest with dressings noted)
Labs/Micro/Reports
Lab Data
02/05/25 04:13
02/05/25 04:14
--- NOTE | 2025-02-05 08:00 | PTCARENOTE ---
Assumed care of patient. Pt rec'd A&Ox3. Pleasant. S1 S2 reg w/ NSR on monitor. +PP. Trace generalized edema. Bilateral SCDs on...left calf BP cuff on. On R/A...lungs clear. Encouraged to cough and deep breath. Abdomen soft...tender...+BS.
On regular diet. Voiding in bathroom. Skin pale in color. Min assist to bathroom. Steady gait. Resting in chair. at bedside and removed ARACELY dressings. Abd's applied to transverse abdominal incision...disposable underwear on for
dressing support. ENEDINA's x 4. LW 18P INT. VS documented. Call cerrato within reach. Safe environment confirmed.
--- NOTE | 2025-02-05 08:15 | PTCARENOTE ---
Reviewed lovenox injection and pt monitored w/ self injection. For d/c home today.
--- NOTE | 2025-02-05 08:15 | W.PN.PLAS ---
Today's Communication
-
Home today
Progress Note
Subjective Data
Doing well
Denies SOB
Subjective: Teresa in Place
Objective Data
Vital Signs
Temp Pulse Resp BP Pulse Ox
97.9 F 100 17 124/94 95
02/05/25 07:12 02/05/25 05:30 02/05/25 05:30 02/05/25 05:00 02/04/25 10:00
Intake and Output
02/04/25 02/05/25 02/06/25
06:59 06:59 06:59
Intake Total 1815 / 1815 180 / 180
Output Total 2207 / 2207 195 / 195
Balance -392 / -392 -15 / -15
Intake:
Oral fluids 1440 / 1440 180 / 180
IV fluids (Total) 375 / 375
Lr 1,000 ml @ 125 mls/hr IV . 375 / 375
Q8H SUNNY Rx#:[id number]
Output:
Drain Output (Total) 237 / 237 195 / 195
A 63 / 63 45 / 45
B 82 / 82 65 / 65
C 8 / 8 10 / 10
D 84 / 84 75 / 75
Urine, Teresa 820 / 820
Urine, Voided 1150 / 1150
Other:
How many times incontinent 1
MODERATE amount urine
Number of approximated MODERATE 1
amounts of urine
PEx:
NAD
No increased WOB
Bilateral breast flaps well perfused in appearance
No evidence of venous congestion
Doppler signals intact
expected swelling
No evidence of undrained fluid collections, breasts soft
Abdomen with dressing intact
Drains serosanguinous with appropriate output
Lab Results
02/05/25 04:13
02/05/25 04:14
Assessment / Plan
s/p bilateral ALEXEY flap breast reconstruction
expected postsurgical/dilutional anemia, no evidence of bleeding
Pathway POD 3
Lovenox/SCDs
PO pain control
[2025-02-05] MEDS: NEURONTIN 600 MG PO (08:20)
[2025-02-05] MEDS: TYLENOL 1000 MG PO (08:20)
[2025-02-05] MEDS: TOPROL XL 25 MG PO (08:20)
[2025-02-05] MEDS: LOVENOX 40 MG SC (08:21)
[2025-02-05] MEDS: VALIUM 5 MG PO (08:21)
[2025-02-05] MEDS: ZYRTEC 10 MG PO (08:21)
--- NOTE | 2025-02-05 09:31 | CM ---
Chart reviewed
Spoke with ICU nurse that pt is ready for DC today
[facility] is already set up and will pick her up
no CM need at this time
--- NOTE | 2025-02-05 10:30 | PTCARENOTE ---
Discharge instructions provided to pt and pt's . All questions answered. Belongings collected from room and pt taken via wheelchair to car for to drive home.
== END 2025-02-05 11:10 | disposition home health service (06) | DRG 909 ==
LOC: ICU 06:10
PROVIDERS: Nurse Practitioner Family; Nurse Practitioner Primary Care; Student in an Organized Health Care Education/Training Program; Surgery; ADMITTING PHYSICIAN Surgery Plastic and Reconstructive Surgery; CONSULT PHYSICIAN Internal Medicine
PROC: 0HPT0NZ Removal of Tissue Expander from Right Breast, Open Approach (ICD-10-PCS; 2025-02-02)
PROC: 0HBT0ZZ Excision of Right Breast, Open Approach (ICD-10-PCS; 2025-02-02)
PROC: 07B90ZX Excision of Left Internal Mammary Lymphatic, Open Approach, Diagnostic (ICD-10-PCS; 2025-02-02)
PROC: 0HRV077 Replacement of Bilateral Breast using Deep Inferior Epigastric Artery Perforator Flap, Open Approach (ICD-10-PCS; 2025-02-02)
PROC: 0WUF0JZ Supplement Abdominal Wall with Synthetic Substitute, Open Approach (ICD-10-PCS; 2025-02-02)
DX: T85.898A Other specified complication of other internal prosthetic devices, implants and grafts, initial encounter (principal); Z42.1 Encounter for breast reconstruction following mastectomy; Z85.3 Personal history of malignant neoplasm of breast; I48.91 Unspecified atrial fibrillation; C50.912 Malignant neoplasm of unspecified site of left female breast; Z90.13 Acquired absence of bilateral breasts and nipples; K42.9 Umbilical hernia without obstruction or gangrene; Y84.8 Other medical procedures as the cause of abnormal reaction of the patient, or of later complication, without mention of misadventure at the time of the procedure; G43.909 Migraine, unspecified, not intractable, without status migrainosus; K21.9 Gastro-esophageal reflux disease without esophagitis; K43.9 Ventral hernia without obstruction or gangrene; Z79.899 Other long term (current) drug therapy
CPT/HCPCS: 71045; 80048; 83735; 84100; 85027; 85610; 85730; 88304; 88305; 93005; 97163; A4648; C1729; C1781

== ENCOUNTER → 2025-02-12 10:01 | Outpatient (REF) | payer OTHER, SELFPAY ==
[2025-02-12 10:59] LABS: Hematocrit 27.0 % (37.0-47.0); Hemoglobin 8.7 g/dL (12.0-16.0); Mean Corp Hgb Conc. 32.2 g/dL (33.0-37.0); Mean Corpuscular Volume 96.1 fL (81.0-99.0); Nucleated Red Blood Cells % 0 %; Platelet Count 332 10^3/uL (130-400); Red Cell Dist. Width 13.8 % (11.5-14.5)
[2025-02-12 11:27] LABS: ALT (SGPT) 28 U/L (0-35); AST (SGOT) 26 U/L (14-36); Albumin 3.7 g/dl (3.5-5.0); Alkaline Phosphatase 92 U/L (38-126); Blood Urea Nitrogen 20 mg/dl (7-17); Calcium 9.5 mg/dl (8.4-10.2); Carbon Dioxide 28 mmol/L (22-30); Chloride 100 mmol/L (98-107); Glucose 83 mg/dl (70-99); Magnesium 1.7 mg/dl (1.6-2.3); Potassium 4.7 mmol/L (3.5-5.1); Sodium 134 mmol/L (135-145); Total Protein 6.1 g/dl (6.3-8.2); eGFR > 60.00
== END ==
LOC: REG 10:01
PROVIDERS: ATTENDING PHYSICIAN Internal Medicine Hematology & Oncology; FAMILY PHYSICIAN Physician Assistant Medical
DX: C50.511 Malignant neoplasm of lower-outer quadrant of right female breast (principal); C50.512 Malignant neoplasm of lower-outer quadrant of left female breast
CPT/HCPCS: 36415; 80053; 83735; 85025